=== PATIENT | female | born 1975 | race Caucasian/White ===

== ENCOUNTER → 2024-09-26 | Outpatient (CLI) | payer SELFPAY ==
--- NOTE | 2024-09-26 14:11 | US_ITS ---
EXAM: US Pelvis Transabdominal and Transvaginal, Complete CLINICAL INDICATION: VAGINAL BLEEDING ABNORMAL TECHNIQUE: Real-time complete transabdominal and transvaginal pelvic ultrasound with image documentation. Transvaginal imaging was used for better evaluation of the endometrium and adnexa. COMPARISON: No relevant prior studies available. FINDINGS: UTERUS/CERVIX: Multiple uterine fibroids, largest measuring up to 3.8 cm. Endometrium 1.2 mm thick. The uterus measures 3.8 x 10.0 x 5.9 cm. RIGHT OVARY: Unremarkable. Normal blood flow. The right ovary measures 6.4 x 4.8 x 4.7 cm. LEFT OVARY: Unremarkable. Normal blood flow. The left ovary measures 3.1 x 2.2 x 1.5 cm. FREE FLUID: No free fluid. BLADDER: Unremarkable as visualized. Wall is normal thickness for degree of distention. OTHER FINDINGS: 3.8 cm right renal cyst. US/Pelvic (Non ) IMPRESSION: Uterine fibroids. Reading Location: [id number]
--- NOTE | 2024-09-26 15:10 | BI_ITS ---
EXAM: SCRN MAMM (CAD)W/SCHUYLER BILAT DATE: 09/26/2024 CLINICAL HISTORY: F, Age 49 y/o , ENCOUNTER FOR SCREENING MATOS MALIGNANT TECHNIQUE: SCRN MAMM (CAD)W/SCHUYLER BILAT COMPARISON: NONE AVAILABLE FINDINGS: TISSUE DENSITY: The breasts are heterogeneously dense, which may obscure small masses. Bilateral Breast Mammographic Findings: No suspicious masses, calcifications or other abnormalities are identified. BI/SCRN MAMM (CAD)W/SCHUYLER BILAT IMPRESSION: No mammographic evidence of malignancy in either breast OVERALL FINAL ASSESSMENT BI-RADS 1: NEGATIVE. RECOMMENDATION: Routine annual follow-up in 1 Year A letter with findings and recommendations will be mailed to the patient. Reading Location: [id number]
== END | disposition home or self-care (01) ==
PROVIDERS: PCP Internal Medicine; Referring Provider Internal Medicine; Visit Provider Internal Medicine
DX: Z12.31 Encounter for screening mammogram for malignant neoplasm of breast (principal); N93.9 Abnormal uterine and vaginal bleeding, unspecified
CPT/HCPCS: 76856; 77063; 77067

== ENCOUNTER → 2024-10-18 | Outpatient (CLI) | payer SELFPAY ==
--- NOTE | 2024-10-18 06:56 | CT_ITS ---
PROCEDURE: LIMITED CHEST CT CARDIAC ONLY 10/18/2024 REASON FOR EXAM: FAMILY HISTORY OF CARDIOVASCULAR DISEASE TECHNIQUE: LIMITED CHEST CT CARDIAC ONLY CONTRAST: None One or more dose reduction techniques were used (e.g., Automated exposure control, adjustment of the mA and/or kV according to patient size, use of iterative reconstruction technique). RADIATION DOSE SUMMARY: CTDlvol: 12.19 mGy DLP: 219.42 mGycm COMPARISON: None FINDINGS: Atherosclerotic calcification of the aortic arch. No significant coronary artery calcification is seen. The lungs are clear. CT/Limited Chest CT Cardiac Only IMPRESSION: No significant coronary artery calcification seen. Reading Location: [place] [id number]
--- NOTE | 2024-10-18 06:56 | CT_ITS ---
PROCEDURE: CARDIAC CALCIUM SCORING 10/18/2024 REASON FOR EXAM: FAMILY HISTORY OF CARDIOVASCULAR DISEASE TECHNIQUE: CT examination through the coronary arteries without intravenous contrast. Screening examination for the purpose of establishing a computer generated calcium score. Coronal and Sagittal reconstruction series were provided. One or more dose reduction techniques were used (e.g., Automated exposure control, adjustment of the mA and/or kV according to patient size, use of iterative reconstruction technique). RADIATION DOSE SUMMARY: CTDlvol: 12.19 mGy DLP: 219 point 12 mGycm FINDINGS: No significant coronary artery calcification is seen. Atherosclerotic calcification of the aortic arch. The lungs are clear. CT/Cardiac Calcium Scoring IMPRESSION: No evidence of coronary artery calcification. Reading Location: [place] [id number]
--- OUTSIDE RECORDS SUMMARY | 2024-10-18 06:58 | XMS RPT_ITS | CCD ---
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 Name Role Phone Unavailable Primary Care Provider Unavailabl e Pooja Mohan DO Primary Care Provider Hardeep MANCINI, Maxine Unavailable Scott ZHAGN, Nava Ellis Unavailable POOJA MOHAN Primary Care Unavailab MAXINE Hernandez Referring Unavailable Irina Hill MA Unavailable Unavailable Adelaide ZHANG, Cassia Unavailable [phone] MAXINE TATUM Attending Unavailable MAXINE TATUM Referring Unavailable POOJA MOHAN Primary Care Unavailab MAXINE Hernandez Attending Unavailable MAXINE TATUM Referring Unavailable POOJA MOHAN Primary Care Unavailab MAXINE Hernandez Admitting Unavailable MAXINE TATUM Attending Unavailable MAXINE TATUM Referring Unavailable POOJA MOHAN Primary Care Unavailab MAXINE Hernandez Attending Unavailable CASSIA BRYSON Referring Unavailable POOJA MOHAN Primary Care Unavailab DEANNA Ellis Attending Unava ilable POOJA MOHAN Primary Care Unavailab le Dr. Pooja Mohan DO Primary Care Provider Dr. Pooja Mohan DO Attending Provider Dr. Pooja Mohan DO Referring Provider [phone] Pooja Mohan Primary Care Unavailable Pooja Mohan Attending Unavailable Pooja Mohan Referring Unavailable Pooja Mohan Attending Unavailable Pooja Mohan Referring Unavailable Pooja Mohan Primary Care Unavailable Pooja Mohan Attending Unavailable Pooja Mohan Referring Unavailable TyPooja pérez Primary Care Unavailable Medications Current Medications Medication Drug Class(es) Dates Sig (Normalized) Sig (Original) Calcium Carbonate (11 sources) calcium carbonat e (CALCIUM 500 ORAL) Take by mouth. Active ergocalciferol, vitamin D2, (VITAMIN D2 ORAL) (10 sources) take 1 tablet by mouth once daily ergocalciferol, vitamin D2, (VITAMIN D2 ORAL) Take 1 tablet by mouth once daily. Active fish oil/borage/flax/om3,6 ,9 1 (OMEGA 3-6-9 ORAL) (11 sources) fish oil/borage/flax/om 3,6,9 1 (OMEGA 3-6-9 ORAL) Take by mouth. Active iv contrast (will be provided with radiology test) (1 source) Start: 03-05-2024 End: 03-05-2024 inject 1 dose intravenously once, then inject 1 dose intravenously once iv contrast (will be provided with radiology test) Indications: Malignant melanoma of left lower extremity including hip (HCC) Inject 1 Each intravenously one time only for [address] COMPLETE LEG (HIP TO TOES) W IVCON LEFT - No IV access, insert saline lock prior to the sedation, infusion, injection for imaging exam. Discontinue saline lock post exam. If Pt. has a central line or IVAD, may access for administration according to line specific nursing protocol. Once exam is complete flush line and de-access according to line specific nursing protocol in the CT contrast administration guidelines link. 1 Each 03/05/2024 03/05/2024 Active multivit with calcium,iron,min (WOMEN'S DAILY MULTIVITAMIN ORAL) (11 sources) multivit with calcium,iron,min (WOMEN'S DAILY MULTIVITAMIN ORAL) Take by mouth. Active sulfamethoxazole 800 mg / trimethoprim 160 mg oral tablet (7 sources) Dihydrofolate Reductase Inhibitor Antibacterial, Sulfonamide Antimicrobial Start: 02-24-2024 take 1 tablet by mouth twice daily sulfamethoxazole-t rimethoprim (BACTRIM DS) 800-160 mg per tablet Indications: Malignant melanoma of left lower extremity including hip (HCC) Take 1 tablet by mouth two times a day. 20 tablet 02/24/2024 Active traMADol hydrochloride 50 mg oral tablet (1 source) Opioid Agonist Start: 02-21-2024 End: 02-26-2024 take 1 tablet by mouth every six hours as needed for pain traMADol (ULTRAM) 50 mg tablet Indications: Malignant melanoma of left lower extremity including hip (HCC) Take 1 tablet by mouth every 6 hours as needed for pain for up to 5 days. 12 tablet 02/21/2024 02/26/2024 Active Problems Active Problems Problem Classification Problem Date Documented Date Episodic/Chronic Melanomas of skin (20 sources) Malignant melanoma of lower limb ; Translations: [Malignant melanoma of left lower limb, including hip] Onset: 01-19-2024 01-16-2024 Chronic Melanomas of skin (2 sources) H/O Malignant melanoma; Translations: [Personal history of malignant melanoma of skin] 07-03-2024 Episodic Other diseases of veins and lymphatics (1 source) Lymphedema, not elsewhere classified; Translations: [Lymphedema] Onset: 01-19-2024 Chronic Other screening for suspected conditions (not mental disorders or infectious disease) (2 sources) Encounter for other screening for malignant neoplasm of breast; Translations: [Encounter for screening mammogram for malignant neoplasm of breast] Onset: 09-26-2024 Episodic Residual codes; unclassified (1 source) Family history of ischemic heart disease and other diseases of the circulatory system; Translations: [Family history of ischemic heart disease and other diseases of the circulatory system] Onset: 10-03-2024 Episodic Unclassified (1 source) Number of Children 07-03-2024 Comment on above: 3. Unclassified (1 source) establishment - Patient is here to get established as she has not seen a pcp since having her children years ago. She reports that she is feeling well at this time. She does not have any chronic medical conditions and does not take any prescription medications.Patient was diagnosed with melanoma on her left leg in January 2024. She has been following with [facility] and a [facility] oncologist. She has follow up scans planned with them every 3 months. Her scans and surgeries have show no recurrence so far.Patient reports a family history of heart disease in her father. 07-03-2024 Unclassified (1 source) Post Op Onset: 02-27-2024 Past or Other Problems Problem Classification Problem Date Documented Date Episodic/Chronic Complications of surgical procedures or medical care (3 sources) Postoperative seroma; Translations: [Postprocedural seroma of skin and subcutaneous tissue following a dermatologic procedure] Onset: 03-20-2024 02-27-2024 Episodic NEGATED: Highlighted row has been ruled out!Unclassified (2 sources) No Problem Information Available Results Test Name Value Interpretation Reference Range Facility Breast imaging reportOrdered By: Loyda Joshi on 09-26-2024 Study report [facility] Imaging Services [address] [place] [place] [id number] SCRN MAMM (CAD)W/SCHUYLER BILAT MR#: [id number] Acct: [id number] Name: BHAVANA DELGADILLO Rep #: [id number] : 1975 F 49 From: Eladio Grace MD PCP: Dr. Pooja Mohan DO Status: RE G CLI Study:SCRN MAMM (CAD)W/SCHUYLER BILAT Date of Exa m: 09/26/24 Exam# [id number] Ordering Dr: Juan Jose Mohan DO EXAM: SCRN MAMM (CAD)W/SCHUYLER BILAT DATE: 09/26/2024 CLINICAL HISTORY: F, Age 49 y/o , ENCOUNTER FOR SCREENING MATOS MALIGNANT TECHNIQUE: SCRN MAMM (CAD)W/SCHUYLER BILAT COMPARISON: NONE AVAILABLE FINDINGS: TISSUE DENSITY: The breasts are heterogeneously dense, which may obscure small masses. Bilateral Breast Mammographic Findings: No suspicious masses, calcifications or other abnormalities are identified. BI/SCRN MAMM (CAD)W/SCHUYLER BILAT IMPRESSION: No mammographic evidence of malignancy in either breast OVERALL FINAL ASSESSMENT BI-RADS 1: NEGATIVE. RECOMMENDATION: Routine annual follow-up in 1 Year A letter with findings and recommendations will be mailed to the patient. Reading Location: [id number] CC: Dr. Pooja Mohan DO ~ Sports Equipment Racker: Signed [facility] Pelvic (Non )on 09-05 Pelvic (Non ) [facility] Imaging Services [address] [place] [address] Pelvic (Non ) MR#: [id number] Acct: [id number] Name: BHAVANA DELGADILLO Rep #: [id number] : 1975 F 49 From: Shane Rahman MD PCP: Dr. Pooja Mohan, DO Status: REG CLI Study: Pelvic (Non ) Date of Exam: 09/26/24 Exam# [id number] Ordering Dr: Pooja Mohan DO EXAM: US Pelvis Transabdominal and Transvaginal, Complete CLINICAL INDICATION: VAGINAL BLEEDING ABNORMAL TECHNIQUE: Real-time complete transabdominal and transvaginal pelvic ultrasound with image documentation. Transvaginal imaging was used for better evaluation of the endometrium and adnexa. COMPARISON: No relevant prior studies available. FINDINGS: UTERUS/CERVIX: Multiple uterine fibroids, largest measuring up to 3.8 cm. Endometrium 1.2 mm thick. The uterus measures 3.8 x 10.0 x 5.9 cm. RIGHT OVARY: Unremarkable. Normal blood flow. The right ovary measures 6.4 x 4.8 x 4.7 cm. LEFT OVARY: Unremarkable. Normal blood flow. The left ovary measures 3.1 x 2.2 x 1.5 cm. FREE FLUID: No free fluid. BLADDER: Unremarkable as visualized. Wall is normal thickness for degree of distention. OTHER FINDINGS: 3.8 cm right renal cyst. US/Pelvic (Non ) IMPRESSION: Uterine fibroids. Reading Location: [facility] CC: Dr. Pooja Mohan, Sports Equipment Racker: Signed Normal [facility] SCRN MAMM (CAD)W/SCHUYLER BILATo n 09-26-2024 SCRN MAMM (CAD)W/SCHUYLER BILAT [facility] Imaging Services [address] [place] [address] SCRN MAMM (CAD)W/SCHUYLER BILAT MR#: [id number] Acct: [id number] Name: BHAVANA DELGADILLO Rep #: [id number] : 1975 F 49 From: Loyda Horn i, MD PCP: Dr. Pooja Mohan, DO Status: REG CLI Study: SCRN MAMM (CAD)W/SCHUYLER BILAT Date of Exam: 09/05 05/29 Exam# [id number] Ordering Dr: Pooja Mohan DO EXAM: SCRN MAMM (CAD)W/SCHUYLER BILAT DATE: 09/26/2024 CLINICAL HISTORY: F, Age 49 y/o , ENCOUNTER FOR SCREENING MATOS MALIGNANT TECHNIQUE: SCRN MAMM (CAD)W/SCHUYLER BILAT COMPARISON: NONE AVAILABLE FINDINGS: TISSUE DENSITY: The breasts are heterogeneously dense, which may obscure small masses. Bilateral Breast Mammographic Findings: No suspicious masses, calcifications or other abnormalities are identified. BI/SCRN MAMM (CAD)W/SCHUYLER BILAT IMPRESSION: No mammographic evidence of malignancy in either breast OVERALL FINAL ASSESSMENT BI-RADS 1: NEGATIVE. RECOMMENDATION: Routine annual follow-up in 1 Year A letter with findings and recommendations will be mailed to the patient. Reading Location: [id number] CC: Dr. Pooja Mohan DO Sports Equipment Racker: [facility] (AGGENS 3[facility] -------- LEONABHAVANA MANCILLA ([id number]) 1975 F Date Time Provider Department 09/25/24 10:00 AM MAXINE TATUM AGGENS3 During your visit today, we recorded the following information about you: Pulse Blood pressure Weight Height 78/minute 124/78 86.2 kg 1.626 m Maxine Tatum MD 09/25/2024 10:44 AM Signed Maxine Tatum MD Surgical Oncology [address] [place] [address], [address] [place] [id number] Name: Bhavana Delgadillo Age: [age] year old Sex: Bhavana Mancilla Leona : 1975 Referring Provider: Maxine Tatum MD Subjective CHIEF COMPLAINT: Melanoma surveillance ONCOLOGIC HISTORY: 01/04/2024: Melanoma of Left lower leg 02/21/2024: WLE and SLNB; [id number] Anatomic Location: Left lower leg Breslow Depth: 1.0mm Ulceration: No Mitosis: 2/mm2 Buchanan Lymph Node Biopsy: Yes Number of positive SLN: 0/1 HISTORY OF PRESENT ILLNESS: Ms. Delgadillo is a 49 year old female who presents for follow up for history of melanoma. Reports some intermittent swelling in left leg worse on hot, humid days or when traveling. Adjuvant Immunotherapy: No Number of Adjuvant Immunotherapy Cycles: N/A Recurrence: No Location of Recurrence: N/A I personally reviewed Tobacco Allergies Meds Problems Med Hx Surg Hx Fam Hx Objective PHYSICAL EXAM: BP 124/78 Pulse 78 Ht 5' 4 (1.63m) Wt 190 lb (86.2kg) SpO2 98% BMI 32.60 kg/(m2). Physical Exam Constitutional: General: She is not in acute distress. Appearance: Normal appearance. HENT: Head: Normocephalic and atraumatic. Mouth/Throat: Mouth: Mucous membranes are moist. Eyes: Extraocular Movements: Extraocular movements intact. Cardiovascular: Rate and Rhythm: Normal rate. Pulmonary: Effort: Pulmonary effort is normal. No respiratory distress. Abdominal: General: Abdomen is flat. Palpations: Abdomen is soft. Musculoskeletal: General: Normal range of motion. Cervical back: Normal range of motion. Lymphadenopathy: Lower Body: No left inguinal adenopathy. Skin: General: Skin is warm and dry. Comments: Incision without subcutaneous nodules or pigmented lesions Neurological: General: No focal deficit present. Mental Status: She is alert and oriented to person, place, and time. Mental status is at baseline. Psychiatric: Mood and Affect: Mood normal. Behavior: Behavior normal. Thought Content: Thought content normal. Judgment: Judgment normal. Assessment/Plan Ms. Delgadillo is a 49 year old female with history of melanoma of left lower leg, s/p WLE and SLNB, without evidence of recurrence -Follow up in 6 months with [facility] -Refer to Lymphedema clinic -Continue regular Dermatology screenings -Skin protection with sunscreen and physical barriers discussed. Cancer Staging Malignant melanoma of left lower extremity including hip (HCC) Staging form: Melanoma of the Skin, AJCC 8th Edition - Pathologic stage from 02/21/2024: Stage IA (pT1b, pN0, cM0) - Signed by Maxine Tatum MD on 03/12/2024 Maxine Tatum MD 09/25/2024 1043 Referring Provider: MAXINE TTAUM [[id number]] Allergies As of Date: 09/25/2024 (No Known Allergies) Date Reviewed: 09/25/2024 Reviewed by: Maxine Tatum MD - Fully Assessed Reason for Visit: New Patient [172] Established Patient [175] Cmt: 6 month follow up Melanoma Primary Visit Diagnosis:Malignant melanoma of left lower extremity including hip (HCC) [C43.72] Order(s):CONSULT TO LYMPHEDEMA THERAPY [[id number]] Order #: [id number]: 1 FUTURE Prescriptions as of 09/25/2024 - sulfamethoxazole-trimeth oprim (BACTRIM DS) 800-160 mg per tablet Take 1 tablet by mouth two times a day. - ergocalciferol, vitamin D2, (VITAMIN D2 ORAL) Take 1 tablet by mouth once daily. - multivit with calcium,iron,min (WOMEN'S DAILY MULTIVITAMIN ORAL) Take by mouth. - calcium carbonate (CALCIUM 500 ORAL) Take by mouth. - fish oil/borage/flax/om3,6,9 1 (OMEGA 3-6-9 ORAL) Take by mouth. Problem List As Of Date 09/25/2024 Noted Resolved Malignant melanoma of left lower extremity incl*01/19/2024 Level of Service: OFFICE/OUTPATIENT ESTABLISHED MOD [facility] 30 MIN [59939] Additional E/M codes: VISIT CPLX INHERENT EANDM ASSOC WITH MED * Encounter Status:Closed by MAXINE TATUM on 09/25/24 [facility] 05-15-2024 NIRALI Telephone (OBGYWM) -------- BHAVANA DELGADILLO ([id number]) 1975 F Date Time Provider Department 05/15/24 MAXINE TATUM During your visit today, we recorded the following information about you: Arlene Martin 05/15/2024 2:03 PM Signed Patient would like disk of CT scan on 03/09/24 of her left leg. Andrea Armendariz, [facility] 05/16/2024 2:31 PM Signed CD READY FOR MARKER DELIVERY AT [facility] PT IS AWARE Allergies As of Date: 05/15/2024 (No Known Allergies) Date Reviewed: 03/20/2024 Reviewed by: Maxine Tatum MD - Fully Assessed Prescriptions as of 05/17/2024 - sulfamethoxazole-trimeth oprim (BACTRIM DS) 800-160 mg per tablet Take 1 tablet by mouth two times a day. - ergocalciferol, vitamin D2, (VITAMIN D2 ORAL) Take 1 tablet by mouth once daily. - multivit with calcium,iron,min (WOMEN'S DAILY MULTIVITAMIN ORAL) Take by mouth. - calcium carbonate (CALCIUM 500 ORAL) Take by mouth. - fish oil/borage/flax/om3,6,9 1 (OMEGA 3-6-9 ORAL) Take by mouth. Problem List As Of Date 05/15/2024 Noted Resolved Malignant melanoma of left lower extremity incl*01/19/2024 Encounter Status:Closed by ANDREA GUZMÁN on 05/17/24 [facility]OVon 03-20-2024 CNOV Office Visit (AGGENS 3) -------- BHAVANA DELGADILLO ([id number]) 1975 F Date Time Provider Department 03/20/24 11:30 AM MAXINE TATUM3 During your visit today, we recorded the following information about you: Pulse Blood pressure Weight Height 84/minute 130/80 88.9 kg 1.626 m Maxine Tatum MD 03/20/2024 12:12 PM Signed Maxine Tatum MD Surgical Oncology [address] [facility], [address] [place] [address] Name: Bhavana Delgadillo Age: [age] year old Sex: Bhavana Delgadillo : 1975 Referring Provider: Maxine Tatum MD Subjective CHIEF COMPLAINT: Melanoma ONCOLOGIC HISTORY: 01/04/2024: Melanoma of Left lower leg 02/21/2024: WLE of left lower leg melanoma and SLNB; [id number] HISTORY OF PRESENT ILLNESS: Ms. Delgadillo is a 48 year old female who presents for postoperative follow up for WLE and SLNB of melanoma of left lower leg. Has had some inguinal incisional wound healing difficulties. Has been having continuous serous drainage from left inguinal incision. Was seen by Dr. De Souza due to concerns for wound infection. Was treated with a week's worth of oral antibiotics. Continues to have drainage but states that it is clear. Reports continuous drainage despite dressings. Patient was supposed to have follow up last week but cancelled due to having the flu. When I spoke to her on the phone at that time, she mentioned that the area had sealed up and was no longer draining and would like to avoid a drain if possible. Today she states that the area is no longer draining. She continues to feel a small lump under the incision consistent with a seroma but otherwise feels well. Date of Surgery:02/21/2024 Anatomic Location: Left lower leg Breslow Depth: 1.0mm Ulceration: No Mitosis: 2/mm2 Buchanan Lymph Node Biopsy: Yes Number of positive SLN: 0/1 PAST MEDICAL HISTORY Diagnosis Date Malignant melanoma (HCC) PAST SURGICAL HISTORY Procedure Laterality Date SECTION HX x3 PAST SURGICAL HISTORY OF 2023 skin lesion biopsy PAST SURGICAL HISTORY OF Left WLE Melanoma Current Outpatient Medications on File Prior to Visit Medication Sig sulfamethoxazole-trimeth oprim (BACTRIM DS) 800-160 mg per tablet Take 1 tablet by mouth two times a day. ergocalciferol, vitamin D2, (VITAMIN D2 ORAL) Take 1 tablet by mouth once daily. multivit with calcium,iron,min (WOMEN'S DAILY MULTIVITAMIN ORAL) Take by mouth. calcium carbonate (CALCIUM 500 ORAL) Take by mouth. fish oil/borage/flax/om3,6,9 1 (OMEGA 3-6-9 ORAL) Take by mouth. No current facility-administered medications on file prior to visit. ALLERGIES No Known Allergies FAMILY HISTORY Problem Relation Age of Onset Breast Cancer Maternal Aunt Breast Cancer Maternal Aunt Breast Cancer Maternal Aunt Social History Tobacco Use Smoking status: Never Smokeless tobacco: Never Substance Use Topics Alcohol use: Yes Comment: less than 1 per week Drug use: Never I personally reviewed Tobacco Allergies Meds Problems Med Hx Surg Hx Fam Hx Objective PHYSICAL EXAM: BP 130/80 Pulse 84 Ht 5' 4 (1.63m) Wt 196 lb (88.9kg) SpO2 97% BMI 33.63 kg/(m2). Physical Exam Constitutional: General: She is not in acute distress. Appearance: Normal appearance. HENT: Head: Normocephalic and atraumatic. Eyes: Extraocular Movements: Extraocular movements intact. Conjunctiva/sclera: Conjunctivae normal. Cardiovascular: Rate and Rhythm: Normal rate and regular rhythm. Pulses: Normal pulses. Heart sounds: Normal heart sounds. Pulmonary: Effort: Pulmonary effort is normal. No respiratory distress. Breath sounds: Normal breath sounds. No stridor. Abdominal: General: There is no distension. Palpations: Abdomen is soft. Tenderness: There is no abdominal tenderness. Musculoskeletal: General: No deformity. Normal range of motion. Cervical back: Normal range of motion. Lymphadenopathy: Cervical: No cervical adenopathy. Skin: General: Skin is warm and dry. Findings: No erythema or rash. Comments: Groin and lower leg incisions well healing; left groin with a seroma deep to the incision. Neurological: General: No focal deficit present. Mental Status: She is alert and oriented to person, place, and time. Mental status is at baseline. Psychiatric: Mood and Affect: Mood normal. Behavior: Behavior normal. Thought Content: Thought content normal. Judgment: Judgment normal. DATA: Images: CT Date of Test: 03/09/2024 IMPRESSION: 2.9 cm left inguinal collection at site of presumed lymph node excision, likely a small seroma. Additional small collection in the medial left calf subcutaneous fat also likely reflects a small postoperative seroma. Images were personally reviewed and interpreted. Assessmen (more content not included)... [facility] 03-16-2024 CNPN Telephone (AGGENS3) -------- BHAVANA DELGADILLO ([id number]) 1975 F Date Time Provider Department 03/16/24 MAXINE TATUM AGGENS3 During your visit today, we recorded the following information about you: Eliza Neff LPN 03/16/2024 2:02 PM Signed OV note, Op report, Pathology report faxed to referring office, [facility]. 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 - ergocalciferol, vitamin D2, (VITAMIN D2 ORAL) Take 1 tablet by mouth once daily. - multivit with calcium,iron,min (WOMEN'S DAILY MULTIVITAMIN ORAL) Take by mouth. - calcium carbonate (CALCIUM 500 ORAL) Take by mouth. - fish oil/borage/flax/om3,6,9 1 (OMEGA 3-6-9 ORAL) Take by mouth. Problem List As Of Date 03/16/2024 Noted Resolved Malignant melanoma of left lower extremity incl*01/19/2024 Encounter Status:Closed by ELIZA NEFF on 03/16/[address] [facility] [address] COMPLETE LEG W IVCON LTon 03-09-2024 CT COMPLETE LEG W IVCON LT * * *Final Report* * * DATE OF EXAM: Mar 09 2024 10:52AM [facility] 2006 - CT COMPLETE LEG W IVCON LT / PROCEDURE REASON: Malignant melanoma of left lower extremity including hip (HCC) * * * * Physician Interpretation * * * * EXAMINATION: CT COMPLETE LEG W IVCON LT CLINICAL HISTORY: Left inguinal sentinel lymph node biopsy, evaluate for seroma. TECHNIQUE: Axial CT of the left lower extremity was obtained after intravenous contrast. Coronal and sagittal reformats were reviewed. Bone and soft tissue reconstruction algorithms were utilized. Contrast: IV administration of 100 ml of Omnipaque 350 CT Radiation dose: Integrated Dose-length product (DLP) for this visit = 990 mGy*cm. CT Dose Reduction Employed: Automated exposure control(AEC) and iterative recon COMPARISON: None RESULT: Postsurgical changes in the left inguinal region including multiple surgical clips surrounding a 2.9 x 2.0 cm collection, presumably at site of lymph node excision. Additional 2.2 x 1.4 cm collection in the medial aspect of the left calf subcutaneous fat with adjacent stranding, likely site of melanoma excision. The soft tissues are otherwise unremarkable. There is no enhancing mass. Mild medial compartment osteoarthritis in the knee. Small Aragon's cyst. The hip and ankle joints are maintained. Benign-appearing 1.3 cm fibro-osseous lesion in the intertrochanteric left femur. The imaged pelvis is unremarkable. No lymphadenopathy. Manager Ship (topogram) images: No significant additional findings. IMPRESSION: 2.9 cm left inguinal collection at site of presumed lymph node excision, likely a small seroma. Additional small collection in the medial left calf subcutaneous fat also likely reflects a small postoperative seroma. Sports Equipment Racker: ANGELINE Transcribe Date/Time: Mar 09 2024 1:14P Dictated by : CLEVE PAGAN MD This examination was interpreted and the report reviewed and electronically signed by: SHELLY MOSHER MD on Mar 09 2024 3:06PM EST [id number] Normal [facility] CT Lower extremity - left W contrast Rolando 03-09-2024 IMPRESSION: 2.9 cm left inguinal collection at site of presumed lymph node excision, likely a small seroma. Additional small collection in the medial left calf subcutaneous fat also likely reflects a small postoperative seroma. Sports Equipment Racker: ANGELINE Transcribe Date/Time: Mar 09 2024 1:14P Dictated by : CLEVE PAGAN MD This examination was interpreted and the report reviewed and electronically signed by: SHELLY MOSHER MD on Mar 09 2024 3:06PM [facility] DIVISION OF RADIOLOGY * * *Final Report* * * DATE OF EXAM: Mar 09 2024 10:52AM [facility] 2005 - CT COMPLETE LEG W IVCON LT / PROCEDURE REASON: Malignant melanoma of left lower extremity including hip (HCC) * * * * Physician Interpretation * * * * EXAMINATION: CT COMPLETE LEG W IVCON LT CLINICAL HISTORY: Left inguinal sentinel lymph node biopsy, evaluate for seroma. TECHNIQUE: Axial CT of the left lower extremity was obtained after intravenous contrast. Coronal and sagittal reformats were reviewed. Bone and soft tissue reconstruction algorithms were utilized. Contrast: IV administration of 100 ml of Omnipaque 350 CT Radiation dose: Integrated Dose-length product (DLP) for this visit = 990 mGy*cm. CT Dose Reduction Employed: Automated exposure control(AEC) and iterative recon COMPARISON: None RESULT: Postsurgical changes in the left inguinal region including multiple surgical clips surrounding a 2.9 x 2.0 cm collection, presumably at site of lymph node excision. Additional 2.2 x 1.4 cm collection in the medial aspect of the left calf subcutaneous fat with adjacent stranding, likely site of melanoma excision. The soft tissues are otherwise unremarkable. There is no enhancing mass. Mild medial compartment osteoarthritis in the knee. Small Aragon's cyst. The hip and ankle joints are maintained. Benign-appearing 1.3 cm fibro-osseous lesion in the intertrochanteric left femur. The imaged pelvis is unremarkable. No lymphadenopathy. Manager Ship (topogram) images: No significant additional findings. DIVISION OF RADIOLOGY Provider, [facility] - 03/09/2024 * * *Final Report* * * DATE OF EXAM: Mar 09 2024 10:52AM [facility] [address] - [address] COMPLETE LEG W IVCON LT / PROCEDURE REASON: Malignant melanoma of left lower extremity including hip (HCC) * * * * Physician Interpretation * * * * EXAMINATION: CT COMPLETE LEG W IVCON LT CLINICAL HISTORY: Left inguinal sentinel lymph node biopsy, evaluate for seroma. TECHNIQUE: Axial CT of the left lower extremity was obtained after intravenous contrast. Coronal and sagittal reformats were reviewed. Bone and soft tissue reconstruction algorithms were utilized. Contrast: IV administration of 100 ml of Omnipaque 350 CT Radiation dose: Integrated Dose-length product (DLP) for this visit = 990 mGy*cm. CT Dose Reduction Employed: Automated exposure control(AEC) and iterative recon COMPARISON: None RESULT: Postsurgical changes in the left inguinal region including multiple surgical clips surrounding a 2.9 x 2.0 cm collection, presumably at site of lymph node excision. Additional 2.2 x 1.4 cm collection in the medial aspect of the left calf subcutaneous fat with adjacent stranding, likely site of melanoma excision. The soft tissues are otherwise unremarkable. There is no enhancing mass. Mild medial compartment osteoarthritis in the knee. Small Aragon's cyst. The hip and ankle joints are maintained. Benign-appearing 1.3 cm fibro-osseous lesion in the intertrochanteric left femur. The imaged pelvis is unremarkable. No lymphadenopathy. Manager Ship (topogram) images: No significant additional findings. IMPRESSION IMPRESSION: 2.9 cm left inguinal collection at site of presumed lymph node excision, likely a small seroma. Additional small collection in the medial left calf subcutaneous fat also likely reflects a small postoperative seroma. Sports Equipment Racker: PSCB Transcribe Date/Time: Mar 09 2024 1:14P Dictated by : CLEVE PAGAN MD This examination was interpreted and the report reviewed and electronically signed by: SHELLY MOSHER MD on Mar 09 2024 3:06PM [facility] Radiology Study observation (narrative) [facility] CT Lower extremity - left W contrast IVOrdered By: [facility] Provider on 03-09-2024 [facility] CNOVon 02-27-2024 CNOV Office Visit (AGG[place] 3) -------- BHAVANA DELGADILLO ([id number]) 1975 F Date Time Provider Department 02/27/24 1:15 PM DEANNA DE SOUZA3 During your visit today, we recorded the following information about you: Deanna De Souza MD 02/27/2024 2:48 PM Signed [facility] SURGERY PROGRESS NOTE Subjective INTERVAL HISTORY OF PRESENT ILLNESS: Came in today for a wound check of her left groin Started noticing erythema that went about detention down her thigh followed by some fluid drainage through the medial side of her incision that sound by her description to be infected hematoma. After a day of that draining, it changed to serous fluid. Was started on bactrim on Tuesday and erythema almost completely resolved today. Removed bandage and does have serous fluid drainage on palpation, but no current concerns for ongoing infection. Was having fever/chills on Tuesday, but this has resolved over the weekend. Leg incision still with tape dressing over top, but no signs of infection or significant drainage - will leave in place for now Objective PHYSICAL EXAM: There were no vitals taken for this visit. Physical Exam Performed GENERAL: Alert, no distress, cooperative LUNGS: Negative ABDOMEN: Soft, nontender WOUND: Left groin incision with serous drainage, well approximated edges, no erythema or hematoma present; left leg incision healing well; dressing not taken fully down, but no erythema, swelling, or drainage from this site Assessment/Plan 48 year old female s/p WLE LLE melanoma and L inguinal SLNB presenting today for wound check with L groin seroma. --Complete 10 day course of bactrim as prescribed --Dry dressing to groin - change daily and as needed --Keep LLE dressing on until 03/06 and then can take off --Keep follow-up with Dr. Tatum as scheduled in March Danielle De Souza MD B Surgeon Allergies As of Date: 02/27/2024 (No Known Allergies) Date Reviewed: 02/27/2024 Reviewed by: Eliza Neff LPN - Fully Assessed Reason for Visit: Post Op [174] Cmt: Incision check Primary Visit Diagnosis:Malignant melanoma of left lower extremity including hip (HCC) [C43.72] Other Visit Diagnosis:Seroma of skin or subcutaneous tissue after dermatologic procedure [L76.33] Prescriptions as of 02/27/2024 - sulfamethoxazole-trimeth oprim (BACTRIM DS) 800-160 mg per tablet Take 1 tablet by mouth two times a day. - ergocalciferol, vitamin D2, (VITAMIN D2 ORAL) Take 1 tablet by mouth once daily. - multivit with calcium,iron,min (WOMEN'S DAILY MULTIVITAMIN ORAL) Take by mouth. - calcium carbonate (CALCIUM 500 ORAL) Take by mouth. - fish oil/borage/flax/om3,6,9 1 (OMEGA 3-6-9 ORAL) Take by mouth. Problem List As Of Date 02/27/2024 Noted Resolved Malignant melanoma of left lower extremity incl*01/19/2024 Level of Service: POSTOP FOLLOW UP VISIT RELATED TO ORIGINAL PX [[id number]] Encounter Status:Closed by DEANNA DE SOUZA on 02/27/24 Normal [facility] ANES POSTPROC EVALon 024 ANES POSTPROC EVAL HNO ID: [id number] Author: BRIJESH WILLSON MD Service: Anesthesiology Author Type: Physician Type: Anesthesia Postprocedure Evaluation Filed: 02/23/2024 10:35 Note Text: POST ANESTHESIA EVALUATION NOTE : 1975 Procedure Summary Date: 02/21/24 Room / Location: [place] [address] [place] [address] Anesthesia Start: 1046 Anesthesia Stop: 1309 Procedures: INTRAOPERATIVE ID OF SENTINEL LYMPH NODE(S) INCL'D INJECTION OF NON-RAD DYE WHEN PERFORMED WIDE LOCAL EXCISION LEFT LEG MELENOMA (Left) Diagnosis: Malignant melanoma of left lower extremity including hip (HCC) (Malignant melanoma of left lower extremity including hip (HCC) [C43.72]) Surgeons: Maxine Tatum MD Responsible Provider: Brijesh Willson MD Anesthesia Type: general ASA Status: 2 Anesthesia Type: general Last Vitals Vitals Value Taken Time BP 142/84 02/21/24 1400 Temp 36.5 ?C (97.7 ?F) 02/21/24 1400 HR SpO2 69 02/21/24 1415 Resp 17 02/21/24 1415 SpO2 100 % 02/21/24 1415 Post Anesthesia Patient Status Patient Evaluation: PACU. PACU/ICU Patient Condition: stable. Neurological Status: aware and responsive. Pulmonary Status: breathing comfortably on room air Airway Control: returned to baseline unsupported. Cardiovascular Status: stable. Pain Management: clinically adequate Postoperative Hydration: acceptable. Intraoperative Events: no significant anesthesia events Post Operative Nausea/Vomiting Status: no significant post operative nausea or vomiting Recommendation: continue current plan of care. Anesthesia Observations No Documentation SIGNATURE: Brijesh Willson MD PATIENT NAME: Bhavana Delgadillo DATE: February 23, 2024 TIME: 10:35 AM CSN: [id number] [facility] ALLIED HEALTHon 02-21-2024 ALLIED HEALTH HNO ID: [id number] Author: JIMI LUIS Chaplain Service: ? Author Type: Batch Analyst Type: Allied Health Filed: 02/21/2024 10:14 Note Text: SPIRITUAL CARE ASSESSMENT SERVICE DATE: 02/21/2024 SERVICE TIME: 9:35 AM Visit with: Patient and Family / Friend / Significant Other Length of visit (minutes): 15 Sikh / Spirituality: Advent Reason: Referral from: Patient (self-referral) Purpose of Referral (if stated): presurgical prayer ASSESSMENT Emotional Disposition: Grateful and Nervous Relational Concerns: Lack of clarity about diagnosis or treatment and Struggling with Autonomy Spiritual Concerns: Struggling with transition or change INTERVENTIONS Empowerment: Informed patient of spiritual care resources available, Normalized experience of patient/family, and Provided Healing Services Exploration: Explored emotional needs and resources, Explored relational needs and resources, Explored spiritual needs and resources, and Facilitated life review Relationship Building: Explored interpersonal dynamics Ritual: Provided prayer OUTCOMES Patient debriefed/defused their experience, Patient expressed gratitude, Patient expressed humor, Patient's distress reduced, Identified meaningful connections, Relational resources utilized, and Spiritual resources utilized PLAN Follow-up not needed COMMENTS: Batch Analyst attended patient as referred for patient-requested prayer. Batch Analyst also oriented patient and family to available spiritual care resources. Patient expressed gratitude. SIGNATURE: Chaplain Isai PATIENT NAME: Bhavana Delgadillo DATE: February 21, 2024 TIME: 10:09 AM PAGER/CONTACT #: [phone] [facility] ANES PRE-OPon 02-21-2024 ANES PRE-OP HNO ID: [id number] Author: BRIJESH WILLSON MD Service: Anesthesiology Author Type: Physician Type: Anesthesia Preprocedure Evaluation Filed: 02/21/2024 12:39 Note Text: ANESTHESIOLOGY DAY OF SURGERY NOTE : 1975 Procedure Information Anesthesia Start Date/Time: 02/21/24 1046 Procedures: INTRAOPERATIVE ID OF SENTINEL LYMPH NODE(S) INCL'D INJECTION OF NON-RAD DYE WHEN PERFORMED WIDE LOCAL EXCISION LEFT LEG MELENOMA (Left) Location: [place] 01 / [place] Surgeons: Maxine Tatum MD Estimated body mass index is 33.76 kg/m? as calculated from the following: Height as of 01/19/24: 162.6 cm (5' 4). Weight as of this encounter: 89.2 kg (196 lb 10.4 oz). Most recent hematocrit and potassium results: No results found for this basename: HCT,HEMATOCRIT,K,POTASSI UM Relevant Problems No relevant active problems I - PHYSICAL EVALUATION AIRWAY Patient intubated: No. Tracheostomy tube not present Mallampati: II. TM distance: >3 FB. Neck ROM: full ROM without neurological symptoms. Mouth opening: adequate. Short neck: no. Thick neck: no DENTAL Dental findings: teeth intact. II - ANESTHESIA PLAN ASA Score: 2 Anesthetic Plan: general Airway type: ETT NPO Status: adequate [place] Monitoring Plan Monitoring plan: standard ASA. Post Procedure Analgesic Plan Postoperative analgesic plan: multimodal analgesia. Informed Consent Anesthetic risks, benefits, alternatives, personnel and consent discussed: yes. Patient / Responsible Libertarian agrees to proceed: yes Patient / Surrogate agrees to blood products: blood products not planned Significant changes in the patient condition since the History and Physical, not otherwise documented in primary service progress note: no. Potential Anesthesia issues that may suggest increased risk of complications or contraindication to planned procedure: none. Vitals Value Taken Time BP 139/78 02/21/24 1046 Pulse 78 02/21/24 0851 Resp 16 02/21/24 0851 Temp 36.4 ?C (97.5 ?F) 02/21/24 0851 SpO2 100 % 02/21/24 0851 Facility-Administered Medications as of 02/21/2024 Medication Dose Route Frequency - [COMPLETED] enoxaparin 40 mg injection (LOVENOX) 40 mg SUBCUTANEOUS ONCE - lidocaine (PF) 10 mg/mL (1 %) 1-2 mg injection (XYLOCAINE) 0.1-0.2 mL INTRADERMAL PRN - NaCl 0.9% iv flush bag 20 mL INTRAVENOUS PRN - [COMPLETED] acetaminophen 975 mg tab(s) (TYLENOL) 975 mg ORAL Pre-Op Once - [COMPLETED] celecoxib 400 mg cap(s) (CeleBREX) 400 mg ORAL Pre-Op Once - [COMPLETED] gabapentin 300 mg cap(s) (NEURONTIN) 300 mg ORAL Pre-Op Once - [COMPLETED] ceFAZolin iv piggyback 2 g in D5W (iso-osmotic) 100 mL (ANCEF) 2 g INTRAVENOUS Pre-Op Once - NaCl 0.9% irrigation solution X (OR/PROCEDURE) PRN - lidocaine-EPINEPHrine (PF) 50 mL, sodium bicarbonate 20 mL in NaCl (PF) 0.9% 100 mL X (OR/PROCEDURE) PRN - isosulfan blue 1 % injection (LYMPHAZURIN) X (OR/PROCEDURE) PRN Outpatient Medications as of 02/21/2024 Medication Sig - multivit with calcium,iron,min (WOMEN'S DAILY MULTIVITAMIN ORAL) Take by mouth. - calcium carbonate (CALCIUM 500 ORAL) Take by mouth. - fish oil/borage/flax/om3,6,9 1 (OMEGA 3-6-9 ORAL) Take by mouth. I have interviewed and examined the patient. I have reviewed the medical record and/or the pre-anesthesia evaluation, pertinent labs, and test results. This contains updated information obtained within 48 hours of Surgery/Procedure. SIGNATURE: Brijesh Willson MD PATIENT NAME: Bhavana Delgadillo DATE: February 21, 2024 TIME: 12:39 PM CSN: [id number] [facility] BRIEF OP NOTon 02-21-2024 BRIEF OP NOT HNO ID: [id number] Author: JAHAIRA NAVARRO MD Service: General Surgery Author Type: Resident Type: Brief Op Note Filed: 02/21/2024 13:16 Note Text: -------- Attestation signed by Maxine Tatum MD at 02/21/2024 3:14 PM Attending Note I evaluated the patient and personally participated in the ortiz components. I agree with the resident's findings and plan as documented and have discussed the case and management of the patient's care with the resident. Signature: Maxine Tatum MD Date: 02/21/2024 Time: 3:13 PM -------- BRIEF OPERATIVE / PROCEDURE NOTE LOG ID: [id number] SURGERY/PROCEDURE DATE: 02/21/2024 INCISION/PROCEDURE START TIME: 11:15 AM INCISION CLOSE/PROCEDURE END TIME: 12:46 PM SURGEON(S)/PROCEDURALIST (S) AND MARINE WELDER(S): Surgeons and Role: * Maxine Tatum MD - Primary * Jahaira Navarro MD - Resident - Assisting No Additional Staff SURGERY/PROCEDURE(S): 1) Wide local excision of left lower extremity melanoma 2) Left inguinal sentinel lymph node biopsy with use of double tracer ANESTHESIA: General FINDINGS: Hot and blue left inguinal sentinel lymph node ESTIMATED BLOOD LOSS: 10 mls SPECIMENS: ID Type Source Tests Collected by Time Destination A : LEFT INGUINAL SENTINEL LYMPH NODE, HOT AND BLUE Tissue Lymph Node, Left, [place] SURGICAL PATHOLOGY Maxine Tatum MD 02/21/2024 11:54 AM B : LEFT LEG WIDE LOCAL EXCISION, SINGLE STAPLE SUPERIOR, DOUBLE STAPLE TIBIAL Tissue Skin, Wide Excision SURGICAL PATHOLOGY Maxine Tatum MD 02/21/2024 12:13 PM COMPLICATIONS: None CLOSURE TECHNIQUE: Primary PRE-OP/PRE-PROCEDURE DIAGNOSIS: Left lower extremity melanoma POST-OP/POST-PROCEDURE DIAGNOSIS: Same as Preop Patient was accompanied to the next level of care by a licensed practitioner from the surgical team pending completion of this brief op note (or operative note) SIGNATURE: Jahaira Navarro MD PATIENT NAME: Bhavana Delgadillo DATE: February 21, 2024 TIME: 1:[address] [facility] HISTORY PHYSICALon HISTORY PHYSICAL HNO ID: [id number] Author: MAXINE TATUM MD Service: General Surgery Author Type: Physician Type: H&P Filed: 02/21/2024 10:08 Note Text: History and Physical: Name: Bhavana Delgadillo Age: [age] year old Sex: Bhavana Delgadillo : 1975 Referring Provider: Cassia Bryson PA-C Subjective CHIEF COMPLAINT: Left pretibial Melanoma ONCOLOGIC HISTORY: 01/04/2024: Melanoma of Left lower leg HISTORY OF PRESENT ILLNESS: Ms. Delgadillo is a 48 year old female who presents for initial evaluation for newly diagnosed left pretibial melanoma. She states that she has had a mole on her lower left leg for many years and noted a change in size recently. Had the lesion biopsied which returned as melanoma. New Skin Lesion: No Changing size/shape: Yes Bleeding: No Other concerning lesions/nodules: No Prior history of melanoma: No History of sunburns:Yes History of tanning bed use: Yes Family history of Melanoma: No Anatomic Location: left distal medial pretibial region Breslow Depth: 1mm Ulceration: No Mitosis: 2/m2 Here today for WLE and SLNB. PAST MEDICAL HISTORY PAST MEDICAL HISTORY Diagnosis Date Malignant melanoma (HCC) PAST SURGICAL HISTORY PAST SURGICAL HISTORY Procedure Laterality Date SECTION HX x3 PAST SURGICAL HISTORY OF 2023 skin lesion biopsy Current Outpatient Medications on File Prior to Visit Medication Sig multivit with calcium,iron,min (WOMEN'S DAILY MULTIVITAMIN ORAL) Take by mouth. calcium carbonate (CALCIUM 500 ORAL) Take by mouth. fish oil/borage/flax/om3,6,9 1 (OMEGA 3-6-9 ORAL) Take by mouth. No current facility-administered medications on file prior to visit. ALLERGIES ALLERGIES No Known Allergies FAMILY HISTORY FAMILY HISTORY Problem Relation Age of Onset Breast Cancer Maternal Aunt Breast Cancer Maternal Aunt Breast Cancer Maternal Aunt SOCIAL HISTORY Social History Tobacco Use Smoking status: Never Smokeless tobacco: Never Substance Use Topics Alcohol use: Yes Comment: less than 1 per week Drug use: Never I personally reviewed Tobacco Allergies Meds Problems Med Hx Surg Hx Fam Hx Objective PHYSICAL EXAM: BP 124/86 Ht 5' 4 (1.63m) Wt 190 lb (86.2kg) BMI 32.60 kg/(m2). Physical Exam Constitutional: General: She is not in acute distress. HENT: Head: Normocephalic and atraumatic. Eyes: Pupils: Pupils are equal, round, and reactive to light. Cardiovascular: Rate and Rhythm: Normal rate and regular rhythm. Heart sounds: Normal heart sounds. Pulmonary: Effort: Pulmonary effort is normal. No respiratory distress. Breath sounds: Normal breath sounds. No stridor. Abdominal: General: There is no distension. Palpations: Abdomen is soft. Tenderness: There is no abdominal tenderness. Musculoskeletal: General: No deformity. Normal range of motion. Lymphadenopathy: Cervical: No cervical adenopathy. Right cervical: No superficial or posterior cervical adenopathy. Left cervical: No superficial or posterior cervical adenopathy. Upper Body: Right upper body: No supraclavicular or axillary adenopathy. Left upper body: No supraclavicular or axillary adenopathy. Lower Body: No right inguinal adenopathy. No left inguinal adenopathy. Skin: General: Skin is warm and dry. Findings: Lesion present. No erythema or rash. Neurological: Mental Status: She is alert and oriented to person, place, and time. Psychiatric: Judgment: Judgment normal. DATA: Labs: N/A Images: N/A Pathology Report: Left Medial Distal Pretibial Region: Melanoma Histologic Type: superficial spreading Maximum tumor thickness: 1.0 mm Ulceration: not identified Margins: Positive Peripheral margins involved by melanoma in situ Mitotic index: 2/mm2 Microsatellites: not identified LVI: not identified PNI: not identified Regression: not identified Pathologic stage: pT1b Assessment/Plan Ms. Delgadillo is a 48 year old female with new left pretibial melanoma. Discussed with her the recommendations for a WLE with SLNB. Using the Melanoma [place] risk calculator, she has a 12% risk of a positive sentinel lymph node. We discussed briefly that if the lymph nodes returned positive, that adjuvant immunotherapy may be an option. Surgical Planning: WLE: Yes SLNB: Yes Adjacent tissue rearrangement, possible skin graft: No Plastics to close: No Cardiac History: no On ASA or Anticoagulants: no Pacemaker/defibrillator/ implanted device: no Cancer Staging Malignant melanoma of left lower extremity including hip (HCC) Staging form: Melanoma of the Skin, AJCC 8th Edition - Clinical stage from 01/19/2024: Stage IB (cT1b, cN0, cM0) - Signed by Maxine Tatum MD on 01/19/[address] [facility] NM LYMPH NODE IMAGINGon 02-04 NM LYMPH NODE IMAGING * * *Final Report* * * DATE OF EXAM: Feb 21 2024 8:34AM [facility] 0033 - [place] LYMPH NODE IMAGING / PROCEDURE REASON: * * * * Physician Interpretation * * * * EXAM: CUTANEOUS LYMPHOSCINTIGRAPHY HISTORY: Left leg melanoma Preoperative sentinel lymph node mapping. TECHNIQUE: * Injection given with Dr Gannon, Patient identity verified by having them verbalize their name and date of . Injection site was verified with the electronic medical record, patient, and nuclear physics teacher prior to radiopharmaceutical administration. Safety time out was performed prior to injection and site was cleaned in usual sterile fashion. * 1.08 millicuries of filtered technetium-99m sulfur colloid were injected in 4 aliquots intradermally around the aforementioned skin lesion site. * Immediate dynamic images were acquired to confirm location. Subsequent static pelvis images were obtained. * Fused images created and sent to the imaging archive. RESULTS: Two foci of activity in the left inguinal region, consistent with the sentinel lymph nodes. No other areas of tracer accumulation to suggest other possible sentinel lymph node sites. IMPRESSION: Two sentinel lymph nodes in the left inguinal region. Sports Equipment Racker: PSCB Transcribe Date/Time: Feb 21 2024 9:33A Dictated by : STACI HUSTON MD This examination was interpreted and the report reviewed and electronically signed by: STACI HUSTON MD on Feb 21 2024 9:36AM EST [id number] [facility] OPERATIVE NOon 02-21-2024 OPERATIVE NO HNO ID: [id number] Author: MAXINE TATUM MD Service: General Surgery Author Type: Physician Type: Operative Report Filed: 02/21/2024 13:33 Note Text: OPERATIVE/PROCEDURE REPORT LOG ID: [id number] Surgery/Procedure Date: 02/21/2024 Incision/Procedure Start Time: 11:15 AM Incision Close/Procedure End Time: 12:46 PM Surgeon(s)/Proceduralist (s) and Line Service Person(s): Surgeons and Role: * Maxine Tatum MD - Primary * Jahaira Navarro MD - Resident - Assisting No Additional Staff Procedure(s): Wide local excision of melanoma of left lower leg and left inguinal sentinel lymph node biopsy Anesthesia: General Indications for Surgery: Ms. Bhavana Delgadillo is a 48 year old female with a history of melanoma on left lower leg Findings: 1 hot and blue left inguinal lymph node. Skin biopsy site without residual pigmentation. Procedure Details: Prior to the operation, the patient was seen in the preoperative holding area where the site and side were marked. The patient was then taken to radiology where they were injected with radiocolloid by nuclear medicine radiology. A post-procedure lymphoscintigraphy showed localization of the sentinel node to the left inguinal lymph node basin. The patient was brought to the operating room after a preoperative huddle was performed, confirming the correct patient, procedure, and site. General anesthesia was induced. The patient was positioned supine with both arms out. Antibiotics were admininstered within one hour of incision. Surgical timeout was performed prior to making incision to confirm correct patient, procedure, and site with all members of the team in agreement. The dermis around the index site was then injected with lymphazurin blue. The patient was then prepped and draped in usual sterile fashion. The area of maximum radioactive uptake in the left inguinal lymph node basin was identified using the gamma probe. A transverse incision was made in this area and extended through the superficial fascia. The gamma probe was then used to direct dissection toward the sentinel lymph node as well as identifying any blue lymphatics or lymph nodes. Clips were used to secure the lymphatics and the node was dissected free. The node was hot and blue. The ex vivo count of the node was measured and the lymph node basin was explored with the gamma probe for any nodes with greater than 10% of this count. The basin was also explored for any additional blue or palpable lymph nodes. No additional lymph nodes were identified. Hemostasis was achieved and the incision was closed in layers and skin glue applied. Attention was then turned to the wide local excision of the index site located on the left lower leg. A 1 cm circumferential margin was marked around the primary lesion. This created a 4.5 cm diameter excision. The excision was made elliptical with the long axis of closure in the longitudinal axis of the lower leg. The incision was made sharply and carried down to the level of the fascia using electrocautery. The specimen was oriented, marked, and passed off to Pathology. The total length of the incision was 6.5 cm. Cutaneous flaps were created by undermining the subcutaneous tissue off of the deep fascia for 1 cm. Once this was completed, the incision was able to be closed with acceptable amount of tension due to the mobility of the flaps. The incision was closed with a combination of various sized vicryl sutures in multiple layers. Skin glue was applied. At the completion of the case, sponge, lap, and instrument counts were correct x2. The patient tolerated the procedure well, was extubated in the operating room, and taken to the PACU in stable condition. Commission on Cancer - Standard 5.5: Wide Local Excision for Primary Cutaneous Melanoma Wide Local Excision for Primary Cutaneous Melanoma - Excision 1 (Lower Leg - Left) Operation performed with curative intent Yes Original Breslow thickness of the lesion 1.0 mm (to the tenth of a millimeter) Clinical margin width (measured from the edge of the lesion or the prior excision scar) 1 cm Depth of excision Full-thickness skin/subcutaneous tissue down to fascia (melanoma) Pre-Op/Pre-Procedure Diagnosis: Melanoma of left leg Post-Op/Post-Procedure Diagnosis: Same Estimated Blood Loss: 10 mls Specimens: ID Type Source Tests Collected by Time Destination A : LEFT INGUINAL SENTINEL LYMPH NODE, HOT AND BLUE Tissue Lymph Node, Left, Buchanan SURGICAL PATHOLOGY Maxine Tatum MD 02/21/2024 11:54 AM B : LEFT LEG WIDE LOCAL EXCISION, SINGLE STAPLE SUPERIOR, DOUBLE STAPLE TIBIAL Tissue Skin, Wide Excision SURGICAL PATHOLOGY Maxine Tatum MD 02/21/2024 12:13 PM Implantable Devices: None Drains: None Complications: None I/primary surgeon/proceduralist performed the procedure with assistance. Maxine Tatum MD Surgical Oncology Normal [facility] SURGICAL PATHOLOGYon 024 CASE REPORT Normal [facility] Comment on above: Order Comment: Speci men Type: TISSUE SPECIMEN Ordering Facility: [facility] Address: [address] [place] [address] Result Comment: Surg [facility] Pathology Report Case: [id number] Authorizing Provider: Maxine Tatum MD Collected: 02/21/2024 11:54 AM Ordering Location: [facility] Received: 02/22/2024 07:13 AM Pathologist: Byron Cannon MD Specimens: A) - Lymph Node, Left, Buchanan, LEFT INGUINAL SENTINEL LYMPH NODE, HOT AND BLUE B) - Skin, Wide Excision, LEFT LEG WIDE LOCAL EXCISION, SINGLE STAPLE SUPERIOR, DOUBLE STAPLE TIBIAL Performed By: #### S #### [facility] CLIA [id number] [address] CLINICAL HISTORY Normal [facility] Comment on above: Order Comment: Speci men Type: TISSUE SPECIMEN Ordering Facility: [facility] Address: [address] [place] [address] Result Comment: Pre- op diagnosis: Malignant melanoma of left lower extremity including hip (HCC) [C43.72] Performed By: #### S #### [facility] CLIA [id number] [address] DIAGNOSIS COMMENT Normal [facility] Comment on above: Order Comment: Speci men Type: TISSUE SPECIMEN Ordering Facility: [facility] Address: [address] [place] [address] Result Comment: Immu nohistochemical staining for SOX10, HMB45 and Mart1/Melan-A were performed on all submitted tissue blocks of lymph node from part A and show no evidence of metastatic melanoma. Multiple additional H&E-stained deeper sections were examined from selected blocks (B5, B6) from part B to evaluate margin status. Laboratory Developed Test (LDT) Disclaimer: Performance characteristics of immunohistochemical, immunofluorescent and chromogenic in-situ hybridization tests have been determined by the performing laboratory within [facility]???s Rony Maldonado Pathology and Laboratory Medicine Department ([facility], [facility], [facility], [facility], [facility], [facility], or [facility]) in a manner consistent with CLIA requirements. One or more of these tests have not been cleared or approved by the FDA. [facility] is regulated under CLIA as qualified to perform high-complexity testing. These tests are used for clinical purposes. They should not be regarded as investigational or for research. Positive and negative controls stain appropriately. Performed By: #### S #### [facility] CLIA [id number] [address] FINAL DIAGNOSIS Normal [facility] Comment on above: Order Comment: Speci men Type: TISSUE SPECIMEN Ordering Facility: [facility] Address: [address] [place] [address] Result Comment: [employer] Abbott entinel lymph node, left inguinal, excision: - One benign lymph node (0/1). See comment. B. Skin, left leg, wide local excision: - Focal residual melanoma in situ. See comment. - Surgical margins negative. - Dermal scar and biopsy site changes. Performed By: #### S #### [facility] CLIA [id number] [address] FINAL PERFORMING LAB Normal [facility] Comment on above: Order Comment: Speci men Type: TISSUE SPECIMEN Ordering Facility: [facility] Address: [address] [place] [address] Result Comment: Diag nostic interpretation performed at [facility], [address] [place] [address] CLIA# [id number] Fishing Guide: Casa Fernández M.D. Performed By: #### S #### [facility] CLIA [id number] [address] GROSS DESCRIPTION Normal [facility] Comment on above: Order Comment: Speci lenin Type: TISSUE SPECIMEN Ordering Facility: [facility] Address: [address] [place] [address] Result Comment: A. L ymph Node, Left, Buchanan Received in formalin labeled as left inguinal sentinel lymph node hot and blue is a santos, soft possible lymph node with scantly adherent adipose tissue measuring 4.5 x 1.5 x 0.8 cm. The specimen is totally submitted in 3 cassettes. B. Skin, Wide Excision Received in formalin labeled as left leg wide local excision is an oriented elliptical fragment of lightly pigmented wrinkled skin with underlying subcutaneous tissue measuring 6.3 x 2.3 x 2.1 cm. The specimen is oriented with a single staple at superior and double staple at tibial. A centrally located santos, slightly depressed areas identified measuring 0.7 x 0.5 cm. This area of interest is located 0.7 cm from tibial, 1.1 cm from fibular, 2.7 cm from inferior, and 3.3 cm from superior. The remaining wrinkled skin surfaces unremarkable. The specimen is inked as follows: Tibial blue, fibular orange, and deep margin black. The specimen is sectioned to reveal the depressed area extends 0.1 cm below the skin surface, located 2 cm from the closest deep margin. The remaining cut surfaces are predominantly fatty. Manager Business Operations sections to include the entire area of interest are submitted sequentially from inferior to superior as follows: B1 inferior tip outside sales representative insurance perpendicular sections; B2 superior tip outside sales representative insurance perpendicular sections; B3 section adjacent to area of interest; B4-B6 entire lesion; B7 section adjacent to area of interest. Gross examination performed at [facility], [address] [place] [address] RSA February 22, 2024 10:12 AM Performed By: #### S #### [facility] CLIA [id number] [address] [place] [address] CNOVon 01-19-2024 CNOV Office Visit (AGGENS 3) -------- LEONABHAVANA HWANG ([id number]) 1975 F Date Time Provider Department 01/19/24 9:30 AM MAXINE TATUM AGGENS3 During your visit today, we recorded the following information about you: Blood pressure Weight Height 124/86 86.2 kg 1.626 m Maxine Tatum MD 01/19/2024 11:12 AM Signed Maxine Tatum MD Surgical Oncology 1 [facility], [address] [place] [address] Name: Bhavana Leona Age: [age] year old Sex: Bhavana Delgadillo : 1975 Referring Provider: Cassia Bryson PA-C Subjective CHIEF COMPLAINT: Left pretibial Melanoma ONCOLOGIC HISTORY: 01/04/2024: Melanoma of Left lower leg HISTORY OF PRESENT ILLNESS: Ms. Delgadillo is a 48 year old female who presents for initial evaluation for newly diagnosed left pretibial melanoma. She states that she has had a mole on her lower left leg for many years and noted a change in size recently. Had the lesion biopsied which returned as melanoma. New Skin Lesion: No Changing size/shape: Yes Bleeding: No Other concerning lesions/nodules: No Prior history of melanoma: No History of sunburns:Yes History of tanning bed use: Yes Family history of Melanoma: No Anatomic Location: left distal medial pretibial region Breslow Depth: 1mm Ulceration: No Mitosis: 2/m2 PAST MEDICAL HISTORY Diagnosis Date Malignant melanoma (HCC) PAST SURGICAL HISTORY Procedure Laterality Date SECTION HX x3 PAST SURGICAL HISTORY OF 2023 skin lesion biopsy Current Outpatient Medications on File Prior to Visit Medication Sig multivit with calcium,iron,min (WOMEN'S DAILY MULTIVITAMIN ORAL) Take by mouth. calcium carbonate (CALCIUM 500 ORAL) Take by mouth. fish oil/borage/flax/om3,6,9 1 (OMEGA 3-6-9 ORAL) Take by mouth. No current facility-administered medications on file prior to visit. ALLERGIES No Known Allergies FAMILY HISTORY Problem Relation Age of Onset Breast Cancer Maternal Aunt Breast Cancer Maternal Aunt Breast Cancer Maternal Aunt Social History Tobacco Use Smoking status: Never Smokeless tobacco: Never Substance Use Topics Alcohol use: Yes Comment: less than 1 per week Drug use: Never I personally reviewed Tobacco Allergies Meds Problems Med Hx Surg Hx Fam Hx Objective PHYSICAL EXAM: BP 124/86 Ht 5' 4 (1.63m) Wt 190 lb (86.2kg) BMI 32.60 kg/(m2). Physical Exam Constitutional: General: She is not in acute distress. HENT: Head: Normocephalic and atraumatic. Eyes: Pupils: Pupils are equal, round, and reactive to light. Cardiovascular: Rate and Rhythm: Normal rate and regular rhythm. Heart sounds: Normal heart sounds. Pulmonary: Effort: Pulmonary effort is normal. No respiratory distress. Breath sounds: Normal breath sounds. No stridor. Abdominal: General: There is no distension. Palpations: Abdomen is soft. Tenderness: There is no abdominal tenderness. Musculoskeletal: General: No deformity. Normal range of motion. Lymphadenopathy: Cervical: No cervical adenopathy. Right cervical: No superficial or posterior cervical adenopathy. Left cervical: No superficial or posterior cervical adenopathy. Upper Body: Right upper body: No supraclavicular or axillary adenopathy. Left upper body: No supraclavicular or axillary adenopathy. Lower Body: No right inguinal adenopathy. No left inguinal adenopathy. Skin: General: Skin is warm and dry. Findings: Lesion present. No erythema or rash. Neurological: Mental Status: She is alert and oriented to person, place, and time. Psychiatric: Judgment: Judgment normal. DATA: Labs: N/A Images: N/A Pathology Report: Left Medial Distal Pretibial Region: Melanoma Histologic Type: superficial spreading Maximum tumor thickness: 1.0 mm Ulceration: not identified Margins: Positive Peripheral margins involved by melanoma in situ Mitotic index: 2/mm2 Microsatellites: not identified LVI: not identified PNI: not identified Regression: not identified Pathologic stage: pT1b Assessment/Plan Ms. Delgadillo is a 48 year old female with new left pretibial melanoma. Discussed with her the recommendations for a WLE with SLNB. Using the Melanoma [place] risk calculator, she has a 12% risk of a positive sentinel lymph node. We discussed briefly that if the lymph nodes returned positive, that adjuvant immunotherapy may be an option. Surgical Planning: WLE: Yes SLNB: Yes Adjacent tissue rearrangement, possible skin graft: No Plastics to close: No Cardiac History: no On ASA or Anticoagulants: no Pacemaker/defibrillator/ implanted device: no Cancer Staging Malignant melanoma of left lower extremity including hip (HCC) Staging form: Melanoma of the Skin, AJCC 8th Edition - Clinical stage from 01/19/2024 (more content not included)... Normal [facility] Lenore 01-12-2024 ERNAN Telephone (AGGENS3) -------- BHAVANA DELGADILLO ([id number]) 1975 F Date Time Provider Department 01/12/24 JIM LARSON3 During your visit today, we recorded the following information about you: Maryjo An MA 01/12/2024 1:39 PM Signed Left a message with Bhavana to see if she wants to get scheduled with [facility] or [facility] for left medial distal pretibal melanoma. Please ask pt if she has insurance. Called [facility] they said she is self pay there. Going to let pt know she has to call [facility] at [phone] Allergies As of Date: 01/12/2024 (Not on File) Date Reviewed: Never Reviewed Reason for Visit: Appointment [186] Problem List As Of Date: 01/12/2024 (None) Encounter Status:Closed by MARYJO AN on 01/12/24 Normal [facility] CYTOLOGY UMBRELLA SUPERVISOR, CONVERTEDon [facility] Vital Signs Date Time Vital Sign Value Performing Clinician Facility 09-25-2024 09:52-0400 Body height 162.6 cm Maxine Tatum MD Work Phone: [facility] 09-25-2024 09:52-0400 Body mass index (BMI) [Ratio] 32.61 kg/m2 Maxine Tatum MD Work Phone: [facility] 09-25-2024 09:52-0400 Body weight 86.18 kg Maxine Tatum MD Work Phone: [facility] 09-25-2024 09:52-0400 Diastolic blood pressure 78 mm[Hg] Maxine Tatum MD Work Phone: [facility] 09-25-2024 09:52-0400 Heart rate 78 /min Maxine Tatum MD Work Phone: [facility] 09-25-2024 09:52-0400 SaO2% (BldA) [Mass fraction] 98 % Maxine Tatum MD Work Phone: [facility] 09-25-2024 09:52-0400 Systolic blood pressure 124 mm[Hg] Maxine Tatum MD Work Phone: [facility] 07-03-2024 13:29-0400 Body height 163.83 cm Irina Hill MA [employer] 07-03-2024 13:29-0400 Body mass index (BMI) [Ratio] 33.67 kg/m2 Irina Hill MA [employer] 07-03-2024 13:29-0400 Body surface area Derived from formula 1.96 m2 Irina Hill MA [employer] 07-03-2024 13:0400 Body weight 90.38 kg Irina Hill MA [employer] 07-03-2024 13:29-0400 Diastolic blood pressure 85 mm[Hg] Irina Hill MA [employer] Comment on above: Patient Position: Si tting; Cuff Location: Left Arm; Cuff Size: Standard 07-03-2024 13:29-0400 Heart rate 97 /min Irina Hill MA [employer] Comment on above: Pattern: Regular 07-03-2024 13:29-0400 Systolic blood pressure 122 mm[Hg] Irina Hill MA [employer] Comment on above: Patient Position: Si tting; Cuff Location: Left Arm; Cuff Size: Standard 06-06-2024 15:30-0400 Body height 163.83 cm Irina Hill MA [employer] 06-06-2024 15:30-0400 Body mass index (BMI) [Ratio] 32.11 kg/m2 Irina Hill MA [employer] 06-06-2024 15:30-0400 Body surface area Derived from formula 1.92 m2 Irina Hill MA [employer] 06-06-2024 15:30-0400 Body weight 86.18 kg Irina Hill MA [facility] 03-20-2024 11:12-0500 Body height 162.6 cm Maxine Tatum MD Work Phone: [facility] 03-20-2024 11:12-0500 Body mass index (BMI) [Ratio] 33.64 kg/m2 Maxine Tatum MD Work Phone: [facility] 03-20-2024 11:12-0500 Body weight 88.91 kg Maxine Tatum MD Work Phone: [facility] 03-20-2024 11:12-0500 Diastolic blood pressure 80 mm[Hg] Maxine Tatum MD Work Phone: [facility] 03-20-2024 11:12-0500 Heart rate 84 /min Maxine Tatum MD Work Phone: [facility] 03-20-2024 11:12-0500 SaO2% (BldA) [Mass fraction] 97 % Maxine Tatum MD Work Phone: [facility] 03-20-2024 11:12-0500 Systolic blood pressure 130 mm[Hg] Maxine Tatum MD Work Phone: [facility] 01-19-2024 09:14-0500 Body height 162.6 cm Maxine Tatum MD Work Phone: [facility] 01-19-2024 09:14-0500 Body mass index (BMI) [Ratio] 32.61 kg/m2 Maxine Tatum MD Work Phone: [facility] 01-19-2024 09:14-0500 Body weight 86.18 kg Maxine Tatum MD Work Phone: [facility] 01-19-2024 09:14-0500 Diastolic blood pressure 86 mm[Hg] Maxine Tatum MD Work Phone: [facility] 01-19-2024 09:14-0500 Systolic blood pressure 124 mm[Hg] Maxine Tatum MD Work Phone: [facility] Encounters Encounter Date Encounter Type Care Provider Facility Start: 10-18-2024 ambulatory Pooja Mohan Facilit y:[facility] Start: 09-27-2024 ambulatory Pooja Mohan Facilit y:[facility] Start: 09-26-2024 End: 09-26-[address] Pooja Mohan DO Work Phone: -Ultrasound [facility] Start: 09-26-2024 End: 09-26-[address] Pooja Mohan DO -Ultrasound [facility] Work Phone: Start: 09-25-2024 End: 09-25-2024 Office outpatient visit 25 minutes Maxine Tatum MD Work Phone: [facility] Comment on above: Malignant melanoma o f left lower extremity including hip (HCC) (Primary Dx) Start: 09-25-2024 End: 09-26-2024 ambulatory MAXINE TATUM Facility:[facility] Start: 07-03-2024 End: 07-03-2024 Office outpatient new 20 minutes Nava Chavez PA-C Work Phone: [facility] Start: 05-15-2024 End: 05-17-2024 Telephone encounter Maxine Tatum MD Work Phone: OB/Gynecology Start: 03-20-2024 End: 03-20-2024 Postop follow up visit related to original px Maxine Tatum MD Work Phone: [facility] Comment on above: Malignant melanoma o f left lower extremity including hip (HCC) (Primary Dx); Seroma of skin or subcutaneous tissue after dermatologic procedure Start: 03-20-2024 End: 03-20-2024 ambulatory MAXINE TATUM Facility:[facility] Start: 03-16-2024 End: 03-16-2024 Telephone encounter Maxine Tatum MD Work Phone: [facility] Comment on above: 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 [employer] - O ther Start: 03-09-2024 End: 03-09-2024 ambulatory POOJA MOHAN Facility:[facility] Start: 03-09-2024 End: 03-09-2024 Subsequent hospital visit by physician My [facility] (I-Stat) Work Phone: Cat Scan Comment on above: Malignant melanoma o f left lower extremity including hip (HCC) [C43.72] Start: 02-27-2024 End: 02-27-2024 Postop follow up visit related to original px Deanna De Souza MD Work Phone: [facility] Comment on above: Malignant melanoma o f left lower extremity including hip (HCC) (Primary Dx); Seroma of skin or subcutaneous tissue after dermatologic procedure Start: 02-27-2024 End: 02-27-2024 ambulatory DEANNA DE SOUZA Facility:[facility] Start: 02-24-2024 End: 02-24-2024 Orders Only Brittany Johnson RN [facility] Comment on above: Malignant melanoma o f left lower extremity including hip (HCC) (Primary Dx) Start: 02-21-2024 End: 02-21-2024 ambulatory MAXINE TATUM Facility:[facility] Start: 01-23-2024 End: 01-23-2024 Admission to same day surgery center Maxine Tatum MD Work Phone: [facility] Comment on above: Surgery Information Start: 01-23-2024 End: 01-23-2024 E-mail encounter from caregiver Maxine Tatum MD Work Phone: [facility] Start: 01-19-2024 End: 01-19-2024 Office outpatient new 45 minutes Maxine Tatum MD Work Phone: [facility] Comment on above: Malignant melanoma o f left lower extremity including hip (HCC) (Primary Dx) Start: 01-19-2024 End: 03-05-2024 Orders Only Maxine Tatum MD Work Phone: [facility] Comment on above: Malignant melanoma o f left lower extremity including hip (HCC) (Primary Dx) Start: 01-12-2024 End: 01-12-2024 Chart abstracting Jim Larson MD Work Phone: [facility] Start: 01-12-2024 End: 01-12-2024 Telephone encounter Jim Larson MD Work Phone: [facility] Comment on above: Appointment Start: 01-05-2006 Documentation procedure Trae Muniz MD Work Phone: [facility] Start: 01-05-2006 Historic EMR Trae bolden MD Work Phone: [facility] Procedures Date Procedure Procedure Detail Performing Clinician Start: 09-26-2024 Screening mammography Mert Mohan DO Work Phone: Start: 09-26-[address] Juan Jose Mohan DO Work Phone: Start: 03-09-2024 Ct lower extremity w/contrast material Maxine Tatum MD Work Phone: Start: 01-04-2006 CYTOLOGY UMBRELLA SUPERVISOR, CONVERTED Trae Muniz MD Work Phone: Section - 3 or more Irina Hill MA Plan of Treatment Date Care Activity Detail Author Start: 03-27-2025 End: 03-27-2025 Patient encounter procedure 03/27/2025 10:00 AM EST Office Visit [facility] 1 [facility] [address] [place] [address] Tierra Murcia PA-C 1 [place], [place] [phone] 6 MONTH MELANOMA CHECK [facility] Comment on above: 6 MONTH MELANOMA DAKOTA CK Start: 11-05-2024 Influenza vaccination Influenza Vacc ine (#1) [facility] Start: 09-25-2024 End: 09-25-2024 Patient encounter procedure 09/25/2024 8:30 AM EDT Office Visit [facility] [address] [phone] Maxine Tatum MD 1 [place], [place] [phone] (Fax) 6 month check up [facility] Comment on above: 6 month check up Start: 07-03-2024 Patient encounter procedure Medical; [facility] Start: 03-Jul-2024 13:30-04:00 LEATHA [facility] Start: 03-20-2024 End: 03-20-2024 Patient encounter procedure 03/20/2024 11:30 AM EST Office Visit [facility] [address] [phone] Maxine Tatum MD 1 [place], [place] [phone] (Fax) S/P WLE Melanoma [facility] Comment on above: S/P WLE Melanoma Start: 03-13-2024 End: 03-13-2024 Patient encounter procedure [facility] Comment on above: Post op S/P WLE Melanoma Start: 03-09-2024 End: 03-09-2024 Patient encounter procedure 03/09/2024 10:20 AM EST Appointment Cat Scan [address] [place], [place] [address] [place] [facility] [phone] in ofc Cat Scan Comment on above: Sched [facility] [phone] in ofc Start: 02-27-2024 End: 02-27-2024 Patient encounter procedure 02/27/2024 1:15 PM EST Office Visit [facility] [address] [phone] Deanna De Souza MD 1 [place], [place] [phone] (Fax) Post op Incision check [facility] Comment on above: Post op Incision dakota ck Start: 02-21-2024 End: 02-21-2024 Admission to same day surgery center 02/21/2024 10:00 AM EST - 02/21/2024 12:45 PM EST [facility] [address] [place] [address] Maxine Tatum MD 1 [place], [place] [phone] INTRAOPERATIVE ID OF SENTINEL LYMPH NODE(S) INCL'D INJECTION OF NON-RAD DYE WHEN PERFORMED [facility] Comment on above: INTRAOPERATIVE ID OF SENTINEL LYMPH NODE(S) INCL'D INJECTION OF NON-RAD DYE WHEN PERFORMED Start: 02-21-2024 End: 02-21-2024 Excision mal lesion trunk/arm/leg 2.1-3.0 cm EXCISION MALIGNANT LESION ARM 2.1-3.0 CM Malignant melanoma of left lower extremity including hip (HCC) 02/21/2024 10:00 AM EST [facility] Start: 02-21-2024 End: 02-21-2024 Intraop sentinel lymph node id w/dye injection INTRAOPERATIVE ID OF SENTINEL LYMPH NODE(S) INCL'D INJECTION OF NON-RAD DYE WHEN PERFORMED Malignant melanoma of left lower extremity including hip (HCC) 02/21/2024 10:00 AM EST [facility] Start: 02-21-2024 Subsequent hospital visit by physician 02/21/2024 10:00 AM EST Hospital Encounter [facility] [address] [place] [address] Maxine Tatum MD 1 [place], [place] [id number] Malignant melanoma of left lower extremity including hip (HCC) [C43.72] [facility] Comment on above: Malignant melanoma o f left lower extremity including hip (HCC) [C43.72] Start: 02-21-2024 End: 02-21-2024 Patient encounter procedure 02/21/2024 7:30 AM EST Appointment Molecular Imaging 1 [place], [place] [id number] Left lower extremity Molecular Imaging Comment on above: Left lower extremity Start: 01-19-2024 End: 01-19-2024 Patient encounter procedure 01/19/2024 9:30 AM EST Office Visit [facility] 1 [facility] 3rd Floor [place], [place] [id number] Maxine Tatum MD 1 [place], [place] [id number] left medial distal pretibal melanoma [facility] Comment on above: left medial distal p retibal melanoma Start: 11-06-2023 Covid-19 Vaccine ( season) Covid-19 Vaccine ( season) [facility] Start: 11-06-2023 Influenza vaccination Influenza Vacc ine (#1) [facility] Start: 06-28-2023 Pneumococcal Vaccine : 50+ (1 of 1 - PCV) Pneumococcal Vaccine: 50+ (1 of 1 - PCV) [facility] Start: 06-28-2023 Shingrix Vaccine (1 of 2) Shingrix Vaccine (1 of 2) [facility] Start: 2018 Diabetes Screening Diabetes Screenin g [facility] Start: 2018 Lipid panel Lipid Screening [facility] Start: 2018 Screening for malign ant neoplasm of colon [facility] Start: 2013 Screening for malign ant neoplasm of breast Mammogram Screening [facility] Start: 1994 Screening for malign ant neoplasm of cervix Cervical Cancer Screening [facility] Start: 1992 Hepatitis B Vaccine (1 of 3 - 19+ 3-dose series) Hepatitis B Vaccine (1 of 3 - 19+ 3-dose series) [facility] Start: 1992 Urine microalbumin profile DTaP,Tdap,Td Vaccine (1 - Tdap) [facility] Start: 06-28-1991 Anxiety Screening Anxiety Screening [facility] Start: 06-28-1991 Depression Screening Depression Scre ening [facility] Start: 06-28-1991 Hepatitis C screening Hepatitis C Sc anand [facility] Start: 06-28-1991 HIV screening HIV Screening [facility] End: 04-04-2025 CT Lower extremity - left W contrast IV CT COMPLETE LEG (HIP TO TOES) W IVCON LEFT Radiology Routine Malignant melanoma of left lower extremity including hip (HCC) 1 Occurrences starting 03/05/2024 until 04/04/2025 [facility] Work Phone: Comment on above: 1 Occurrences starti ng 03/05/2024 until 04/04/2025 Excision mal lesion trunk/arm/leg 2.1-3.0 cm EXCISION MALIGNANT LESION ARM 2.1-3.0 CM Malignant melanoma of left lower extremity including hip (HCC) [facility] Intraop sentinel lym ph node id w/dye injection INTRAOPERATIVE ID OF SENTINEL LYMPH NODE(S) INCL'D INJECTION OF NON-RAD DYE WHEN PERFORMED Malignant melanoma of left lower extremity including hip (HCC) [facility] End: 02-17-2025 NM Lymph node Views NM LYMPH NODE IMAGING Radiology Routine 1 Occurrences starting 01/19/2024 until 02/17/2025 [facility] Work Phone: Comment on above: 1 Occurrences starti ng 01/19/2024 until 02/17/2025 Payers Date Payer Category Payer Self-pay 2024 Unknown [id number] 2012 Unknown [id number] Unknown [id number] Unknown [id number] Unknown [id number] Social History Date Type Detail Facility Tobacco smoking stat us LAIS Tobacco smoking consumption unknown [facility] Start: 1975 Sex Assigned At Not on file [facility] Start: 01-12-2024 End: 01-19-2024 Gender identity Not on file [facility] Start: 01-12-2024 End: 01-19-2024 Tobacco smoking status NHIS Never smoked tobacco [facility] Start: 01-12-2024 End: 09-25-2024 Alcoholic beverage intake Current drinker of alcohol (finding) [facility] Start: 01-12-2024 End: 01-19-2024 History of Social function [facility] 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 [employer] Tobacco/Smoke Exposure: Tobacco/Smoke Exposure: ; None. [employer]; [employer] None [employer] Work Phone: NEGATED: Highlighted row No Social History Information Available No Social History Information Available [employer] Work Phone: Clinical Notes 01-12-2024 to 09-29-2024 Maxine Tatum MD - 09/25/2024 10:00 AM EDTTelephone Encounter - Andrea Guzmán, [facility] - 05/16/2024 2:31 PM EDTTelephone Encounter - Andrea Guzmán, [facility] - 05/16/2024 2:31 PM EDT Note Date & Type Note Facility 09-29-2024 Radiology Diagnostic study note [facility] Imaging Services [address] [place] [id number] Pelvic (Non ) MR#: [id number] Acct: [id number] Name: BHAVANA DELGADILLO ANN Rep #: [id number] : 1975 F 49 From: Christa Rahman MD PCP: Dr. Pooja Mohan DO Status: RE G CLI Study:Pelvic (Non ) Date of Exam: 09/26/24 Exam# [id number] Ordering Dr: Juan Jose Mohan DO EXAM: US Pelvis Transabdominal and Transvaginal, Complete CLINICAL INDICATION: VAGINAL BLEEDING ABNORMAL TECHNIQUE: Real-time complete transabdominal and transvaginal pelvic ultrasoundwith image documentation. Transvaginal imaging was used for better evaluation of the endometrium and adnexa. COMPARISON: No relevant prior studies available. FINDINGS: UTERUS/CERVIX: Multiple uterine fibroids, largest measuring up to 3.8 cm. Endometrium 1.2 mm thick. The uterus measures 3.8 x 10.0 x 5.9 cm. RIGHT OVARY: Unremarkable. Normal blood flow. The right ovary measures 6.4 x 4.8 x 4.7 cm. LEFT OVARY: Unremarkable. Normal blood flow. The left ovary measures 3.1 x 2.2 x 1.5 cm. FREE FLUID: No free fluid. BLADDER: Unremarkable as visualized. Wall is normal thickness for degree of distention. OTHER FINDINGS: 3.8 cm right renal cyst. US/Pelvic (Non ) IMPRESSION: Uterine fibroids. Reading Location: [facility] CC: Dr. Pooja Mohan, DO ~ [employer] Equipment Racker: Signed [facility] 09-25-2024 History of Presen t illness Narrative Images from the original note were not included. Maxine Tatum MD Surgical Oncology 1 [facility], [address] [place] [address] Name: Bhavana Delgadillo Age: [age] year old Sex: Bhavana Delgadillo : 1975 Referring Provider: Maxine Tatum MD Subjective CHIEF COMPLAINT: Melanoma surveillance ONCOLOGIC HISTORY: 01/04/2024: Melanoma of Left lower leg 02/21/2024: WLE and SLNB; [id number] Anatomic Location: Left lower leg Breslow Depth: 1.0mm Ulceration: No Mitosis: 2/mm2 Buchanan Lymph Node Biopsy: Yes Number of positive SLN: 0/1 HISTORY OF PRESENT ILLNESS: Ms. Delgadillo is a 49 year old female who presents for follow up for history of melanoma. Reports some intermittent swelling in left leg worse on hot, humid days or when traveling. Adjuvant Immunotherapy: No Number of Adjuvant Immunotherapy Cycles: N/A Recurrence: No Location of Recurrence: N/A I personally reviewed Tobacco Allergies Meds Problems Med Hx Surg Hx Fam Hx Objective PHYSICAL EXAM: BP 124/78 Pulse 78 Ht 5' 4 (1.63m) Wt 190 lb (86.2kg) SpO2 98% BMI 32.60 kg/(m^2). Physical Exam Constitutional: General: She is not in acute distress. Appearance: Normal appearance. HENT: Head: Normocephalic and atraumatic. Mouth/Throat: Mouth: Mucous membranes are moist. Eyes: Extraocular Movements: Extraocular movements intact. Cardiovascular: Rate and Rhythm: Normal rate. Pulmonary: Effort: Pulmonary effort is normal. No respiratory distress. Abdominal: General: Abdomen is flat. Palpations: Abdomen is soft. Musculoskeletal: General: Normal range of motion. Cervical back: Normal range of motion. Lymphadenopathy: Lower Body: No left inguinal adenopathy. Skin: General: Skin is warm and dry. Comments: Incision without subcutaneous nodules or pigmented lesions Neurological: General: No focal deficit present. Mental Status: She is alert and oriented to person, place, and time. Mental status is at baseline. Psychiatric: Mood and Affect: Mood normal. Behavior: Behavior normal. Thought Content: Thought content normal. Judgment: Judgment normal. Assessment/Plan Ms. Delgadillo is a 49 year old female with history of melanoma of left lower leg, s/p WLE and SLNB, without evidence of recurrence -Follow up in 6 months with [facility] -Refer to Lymphedema clinic -Continue regular Dermatology screenings -Skin protection with sunscreen and physical barriers discussed. Cancer Staging Malignant melanoma of left lower extremity including hip (HCC) Staging form: Melanoma of the Skin, AJCC 8th Edition - Pathologic stage from 02/21/2024: Stage IA (pT1b, pN0, cM0) - Signed by Maxine Tatum MD on 03/12/2024 Maxine Tatum MD 09/25/2024 [id number] documented in this encounter [facility] 09-25-2024 Note HNO ID: [id number] Author: MAXINE TATUM MD Service: ? Author Type: Physician Type: Progress Notes Filed: 09/25/2024 10:44 Note Text: Maxine Tatum MD Surgical Oncology 1 [facility], [address] [place] [id number] Name: Bhavana Delgadillo Age: [age] year old Sex: Bhavana Delgadillo : 1975 Referring Provider: Maxine Tatum MD Subjective CHIEF COMPLAINT: Melanoma surveillance ONCOLOGIC HISTORY: 01/04/2024: Melanoma of Left lower leg 02/21/2024: WLE and SLNB; [id number] Anatomic Location: Left lower leg Breslow Depth: 1.0mm Ulceration: No Mitosis: 2/mm2 Buchanan Lymph Node Biopsy: Yes Number of positive SLN: 0/1 HISTORY OF PRESENT ILLNESS: Ms. Delgadillo is a 49 year old female who presents for follow up for history of melanoma. Reports some intermittent swelling in left leg worse on hot, humid days or when traveling. Adjuvant Immunotherapy: No Number of Adjuvant Immunotherapy Cycles: N/A Recurrence: No Location of Recurrence: N/A I personally reviewed Tobacco Allergies Meds Problems Med Hx Surg Hx Fam Hx Objective PHYSICAL EXAM: BP 124/78 Pulse 78 Ht 5' 4 (1.63m) Wt 190 lb (86.2kg) SpO2 98% BMI 32.60 kg/(m2). Physical Exam Constitutional: General: She is not in acute distress. Appearance: Normal appearance. HENT: Head: Normocephalic and atraumatic. Mouth/Throat: Mouth: Mucous membranes are moist. Eyes: Extraocular Movements: Extraocular movements intact. Cardiovascular: Rate and Rhythm: Normal rate. Pulmonary: Effort: Pulmonary effort is normal. No respiratory distress. Abdominal: General: Abdomen is flat. Palpations: Abdomen is soft. Musculoskeletal: General: Normal range of motion. Cervical back: Normal range of motion. Lymphadenopathy: Lower Body: No left inguinal adenopathy. Skin: General: Skin is warm and dry. Comments: Incision without subcutaneous nodules or pigmented lesions Neurological: General: No focal deficit present. Mental Status: She is alert and oriented to person, place, and time. Mental status is at baseline. Psychiatric: Mood and Affect: Mood normal. Behavior: Behavior normal. Thought Content: Thought content normal. Judgment: Judgment normal. Assessment/Plan Ms. Delgadillo is a 49 year old female with history of melanoma of left lower leg, s/p WLE and SLNB, without evidence of recurrence -Follow up in 6 months with [facility] -Refer to Lymphedema clinic -Continue regular Dermatology screenings -Skin protection with sunscreen and physical barriers discussed. Cancer Staging Malignant melanoma of left lower extremity including hip (HCC) Staging form: Melanoma of the Skin, AJCC 8th Edition - Pathologic stage from 02/21/2024: Stage IA (pT1b, pN0, cM0) - Signed by Maxine Tatum MD on 03/12/2024 Maxine Tatum MD 09/25/2024 1043 [facility] 05-16-2024 Telephone encounter Note CD READY FOR MARKER DELIVERY AT [facility] RAD[facility] PT IS AWARE [facility] 05-16-2024 Miscellaneous Notes CD READY FOR MARKER DELIVERY AT [facility] RAD[facility] PT IS AWARE Patient would like disk of CT scan on 03/09/24 of her left leg. Arlene Martin documented in this encounter [facility] 05-15-2024 Telephone encounter Note Patient would like disk of CT scan on 03/09/24 of her left leg. Arlene Martin [facility] 03-20-2024 History of Presen t illness Narrative Images from the original note were not included. Maxine Tatum MD Surgical Oncology 1 [facility], [address] [place] [id number] Name: Bhavana Delgadillo Age: [age] year old Sex: Bhavana Delgadillo : 1975 Referring Provider: Maxine Tatum MD Subjective CHIEF COMPLAINT: Melanoma ONCOLOGIC HISTORY: 01/04/2024: Melanoma of Left lower leg 02/21/2024: WLE of left lower leg melanoma and SLNB; [id number] HISTORY OF PRESENT ILLNESS: Ms. Delgadillo is a 48 year old female who presents for postoperative follow up for WLE and SLNB of melanoma of left lower leg. Has had some inguinal incisional wound healing difficulties. Has been having continuous serous drainage from left inguinal incision. Was seen by Dr. De Souza due to concerns for wound infection. Was treated with a week's worth of oral antibiotics. Continues to have drainage but states that it is clear. Reports continuous drainage despite dressings. Patient was supposed to have follow up last week but cancelled due to having the flu. When I spoke to her on the phone at that time, she mentioned that the area had sealed up and was no longer draining and would like to avoid a drain if possible. Today she states that the area is no longer draining. She continues to feel a small lump under the incision consistent with a seroma but otherwise feels well. Date of Surgery:02/21/2024 Anatomic Location: Left lower leg Breslow Depth: 1.0mm Ulceration: No Mitosis: 2/mm2 Buchanan Lymph Node Biopsy: Yes Number of positive SLN: 0/1 PAST MEDICAL HISTORY Diagnosis Date Malignant melanoma (HCC) PAST SURGICAL HISTORY Procedure Laterality Date SECTION HX x3 PAST SURGICAL HISTORY OF 2023 skin lesion biopsy PAST SURGICAL HISTORY OF Left WLE Melanoma Current Outpatient Medications on File Prior to Visit Medication Sig sulfamethoxazole-trimethoprim (BACTRIM DS) 800-160 mg per tablet Take 1 tablet by mouth two times a day. ergocalciferol, vitamin D2, (VITAMIN D2 ORAL) Take 1 tablet by mouth once daily. multivit with calcium,iron,min (WOMEN'S DAILY MULTIVITAMIN ORAL) Take by mouth. calcium carbonate (CALCIUM 500 ORAL) Take by mouth. fish oil/borage/flax/om3,6,9 1 (OMEGA 3-6-9 ORAL) Take by mouth. No current facility-administered medications on file prior to visit. ALLERGIES No Known Allergies FAMILY HISTORY Problem Relation Age of Onset Breast Cancer Maternal Aunt Breast Cancer Maternal Aunt Breast Cancer Maternal Aunt Social History Tobacco Use Smoking status: Never Smokeless tobacco: Never Substance Use Topics Alcohol use: Yes Comment: less than 1 per week Drug use: Never I personally reviewed Tobacco Allergies Meds Problems Med Hx Surg Hx Fam Hx Objective PHYSICAL EXAM: BP 130/80 Pulse 84 Ht 5' 4 (1.63m) Wt 196 lb (88.9kg) SpO2 97% BMI 33.63 kg/(m^2). Physical Exam Constitutional: General: She is not in acute distress. Appearance: Normal appearance. HENT: Head: Normocephalic and atraumatic. Eyes: Extraocular Movements: Extraocular movements intact. Conjunctiva/sclera: Conjunctivae normal. Cardiovascular: Rate and Rhythm: Normal rate and regular rhythm. Pulses: Normal pulses. Heart sounds: Normal heart sounds. Pulmonary: Effort: Pulmonary effort is normal. No respiratory distress. Breath sounds: Normal breath sounds. No stridor. Abdominal: General: There is no distension. Palpations: Abdomen is soft. Tenderness: There is no abdominal tenderness. Musculoskeletal: General: No deformity. Normal range of motion. Cervical back: Normal range of motion. Lymphadenopathy: Cervical: No cervical adenopathy. Skin: General: Skin is warm and dry. Findings: No erythema or rash. Comments: Groin and lower leg incisions well healing; left groin with a seroma deep to the incision. Neurological: General: No focal deficit present. Mental Status: She is alert and oriented to person, place, and time. Mental status is at baseline. Psychiatric: Mood and Affect: Mood normal. Behavior: Behavior normal. Thought Content: Thought content normal. Judgment: Judgment normal. DATA: Images: CT Date of Test: 03/09/2024 IMPRESSION: 2.9 cm left inguinal collection at site of presumed lymph node excision, likely a small seroma. Additional small collection in the medial left calf subcutaneous fat also likely reflects a small postoperative seroma. Images were personally reviewed and interpreted. Assessment/Plan Ms. Delgadillo is a 48 year old female with history of melanoma of left lower leg, s/p WLE and SLNB, now with postoperative seroma vs lymphocele in left inguinal lymph node basin, otherwise doing well. -Discussed local wound care and importance of keeping area dry and clean. -Will see back in clinic when drain has dried up. -Discussed sun protection -Follow up in Dermatology q3m -Follow up in 6 months for skin exam. Cancer Staging Malignant melanoma of left lower extremity including hip (HCC) Staging form: Melanoma of the Skin, AJCC 8th Edition - Pathologic stage from 02/21/2024: Stage IA (pT1b, pN0, cM0) - Signed by Maxine Tatum MD on 03/12/2024 Maxine Tatum MD 03/20/2024 [id number] documented in this encounter [facility] 03-20-2024 Note HNO ID: [id number] Author: MAXINE TATUM MD Service: ? Author Type: Physician Type: Progress Notes Filed: 03/20/2024 12:12 Note Text: Maxine Tatum MD Surgical Oncology 1 [facility], [address] [place] [address] Name: Bhavana Delgadillo Age: [age] year old Sex: Bhavana Delgadillo : 1975 Referring Provider: Maxine Tatum MD Subjective CHIEF COMPLAINT: Melanoma ONCOLOGIC HISTORY: 01/04/2024: Melanoma of Left lower leg 02/21/2024: WLE of left lower leg melanoma and SLNB; [id number] HISTORY OF PRESENT ILLNESS: Ms. Delgadillo is a 48 year old female who presents for postoperative follow up for WLE and SLNB of melanoma of left lower leg. Has had some inguinal incisional wound healing difficulties. Has been having continuous serous drainage from left inguinal incision. Was seen by Dr. De Souza due to concerns for wound infection. Was treated with a week's worth of oral antibiotics. Continues to have drainage but states that it is clear. Reports continuous drainage despite dressings. Patient was supposed to have follow up last week but cancelled due to having the flu. When I spoke to her on the phone at that time, she mentioned that the area had sealed up and was no longer draining and would like to avoid a drain if possible. Today she states that the area is no longer draining. She continues to feel a small lump under the incision consistent with a seroma but otherwise feels well. Date of Surgery:02/21/2024 Anatomic Location: Left lower leg Breslow Depth: 1.0mm Ulceration: No Mitosis: 2/mm2 Buchanan Lymph Node Biopsy: Yes Number of positive SLN: 0/1 PAST MEDICAL HISTORY Diagnosis Date Malignant melanoma (HCC) PAST SURGICAL HISTORY Procedure Laterality Date SECTION HX x3 PAST SURGICAL HISTORY OF 2023 skin lesion biopsy PAST SURGICAL HISTORY OF Left WLE Melanoma Current Outpatient Medications on File Prior to Visit Medication Sig sulfamethoxazole-trimethoprim (BACTRIM DS) 800-160 mg per tablet Take 1 tablet by mouth two times a day. ergocalciferol, vitamin D2, (VITAMIN D2 ORAL) Take 1 tablet by mouth once daily. multivit with calcium,iron,min (WOMEN'S DAILY MULTIVITAMIN ORAL) Take by mouth. calcium carbonate (CALCIUM 500 ORAL) Take by mouth. fish oil/borage/flax/om3,6,9 1 (OMEGA 3-6-9 ORAL) Take by mouth. No current facility-administered medications on file prior to visit. ALLERGIES No Known Allergies FAMILY HISTORY Problem Relation Age of Onset Breast Cancer Maternal Aunt Breast Cancer Maternal Aunt Breast Cancer Maternal Aunt Social History Tobacco Use Smoking status: Never Smokeless tobacco: Never Substance Use Topics Alcohol use: Yes Comment: less than 1 per week Drug use: Never I personally reviewed Tobacco Allergies Meds Problems Med Hx Surg Hx Fam Hx Objective PHYSICAL EXAM: BP 130/80 Pulse 84 Ht 5' 4 (1.63m) Wt 196 lb (88.9kg) SpO2 97% BMI 33.63 kg/(m2). Physical Exam Constitutional: General: She is not in acute distress. Appearance: Normal appearance. HENT: Head: Normocephalic and atraumatic. Eyes: Extraocular Movements: Extraocular movements intact. Conjunctiva/sclera: Conjunctivae normal. Cardiovascular: Rate and Rhythm: Normal rate and regular rhythm. Pulses: Normal pulses. Heart sounds: Normal heart sounds. Pulmonary: Effort: Pulmonary effort is normal. No respiratory distress. Breath sounds: Normal breath sounds. No stridor. Abdominal: General: There is no distension. Palpations: Abdomen is soft. Tenderness: There is no abdominal tenderness. Musculoskeletal: General: No deformity. Normal range of motion. Cervical back: Normal range of motion. Lymphadenopathy: Cervical: No cervical adenopathy. Skin: General: Skin is warm and dry. Findings: No erythema or rash. Comments: Groin and lower leg incisions well healing; left groin with a seroma deep to the incision. Neurological: General: No focal deficit present. Mental Status: She is alert and oriented to person, place, and time. Mental status is at baseline. Psychiatric: Mood and Affect: Mood normal. Behavior: Behavior normal. Thought Content: Thought content normal. Judgment: Judgment normal. DATA: Images: CT Date of Test: 03/09/2024 IMPRESSION: 2.9 cm left inguinal collection at site of presumed lymph node excision, likely a small seroma. Additional small collection in the medial left calf subcutaneous fat also likely reflects a small postoperative seroma. Images were personally reviewed and interpreted. Assessment/Plan Ms. Delgadillo is a 48 year old female with history of melanoma of left lower leg, s/p WLE and SLNB, now with postoperative seroma vs lymphocele in left inguinal lymph node basin, otherwise doing well. -Discussed local wound care and importance of keeping area dry and (more content not included)... [facility] 03-16-2024 Telephone encounter Note OV note, Op report, Pathology report faxed to referring office, [facility] Dermatology. Cornelius NICOLE [facility] 03-16-2024 Miscellaneous Notes OV note, Op report, Pathology report [facility] [facility] Cornelius NICOLE documented in this encounter [facility] 03-09-2024 History of Presen t illness Narrative Radiology Service Progress Note DATE OF SERVICE: March 09, 2024 TIME: 2:29 PM PATIENT IDENTITY VERIFICATION COMPLETED USING TWO (2) STANDARD IDENTIFIERS: Name and Date of confirmed by patient verbally. FALL SCREENING: Has the patient had 2 falls in the last year or 1 fall with injury or currently using an Ambulatory Assistive Device (Walker, Cane, Wheelchair, Crutches, etc.)? No PATIENT GENDER DATA: Female. status: : No status: NO. PATIENT RELEVANT IMPLANT DATA REVIEWED: Yes PATIENT PRESENTS WITH AN IMPLANTABLE OR ATTACHED HEMATOLOGY NURSE EDUCATOR: No ALLERGIES: Reviewed and unchanged CONTRAST ALLERGY: NO. EXAM: CT -CONTRAST INDUCED NEPHROPATHY RISK FACTORS: Not applicable CREATININE: No results found for: CREAT, EGFROTH, EGFRAA P.O.C.T. RESULTS: POC done: Yes, See Lab Tab March 09, 2024 TREATMENT: N/A PERIPHERAL IV DATA: Ambulatory: A peripheral IV was started in the Right antecubital site with a Angio cath: 22 gauge. RADIOLOGY DEPARTMENT: CT; Exam(s) Completed: Lower extremity SIGNATURE: RT Gurpreet(R) PATIENT NAME: Bhavana Delgadillo DATE: March 09, 2024 TIME: 2:29 PM documented in this encounter [facility] 03-09-2024 Note HNO ID: [id number] Author: HIWOT MACKAY RT(R) Service: ? Author Type: Director Health Type: Progress Notes Filed: 03/09/2024 14:30 Note Text: Radiology Service Progress Note DATE OF SERVICE: March 09, 2024 TIME: 2:29 PM PATIENT IDENTITY VERIFICATION COMPLETED USING TWO (2) STANDARD IDENTIFIERS: Name and Date of confirmed by patient verbally. FALL SCREENING: Has the patient had 2 falls in the last year or 1 fall with injury or currently using an Ambulatory Assistive Device (Walker, Cane, Wheelchair, Crutches, etc.)? No PATIENT GENDER DATA: Female. status: : No status: NO. PATIENT RELEVANT IMPLANT DATA REVIEWED: Yes PATIENT PRESENTS WITH AN IMPLANTABLE OR ATTACHED HEMATOLOGY NURSE EDUCATOR: No ALLERGIES: Reviewed and unchanged CONTRAST ALLERGY: NO. EXAM: CT -CONTRAST INDUCED NEPHROPATHY RISK FACTORS: Not applicable CREATININE: No results found for: CREAT, EGFROTH, EGFRAA P.O.C.T. RESULTS: POC done: Yes, See Lab Tab March 09, 2024 TREATMENT: N/A PERIPHERAL IV DATA: Ambulatory: A peripheral IV was started in the Right antecubital site with a Angio cath: 22 gauge. RADIOLOGY DEPARTMENT: CT; Exam(s) Completed: Lower extremity SIGNATURE: RT Gurpreet(R) PATIENT NAME: Bhavana Delgadillo DATE: March 09, 2024 TIME: 2:29 PM [facility] 02-27-2024 Note HNO ID: [id number] Author: DEANNA DE SOUZA MD Service: ? Author Type: Physician Type: Progress Notes Filed: 02/27/2024 14:48 Note Text: B SURGERY PROGRESS NOTE Subjective INTERVAL HISTORY OF PRESENT ILLNESS: Came in today for a wound check of her left groin Started noticing erythema that went about detention down her thigh followed by some fluid drainage through the medial side of her incision that sound by her description to be infected hematoma. After a day of that draining, it changed to serous fluid. Was started on bactrim on Tuesday and erythema almost completely resolved today. Removed bandage and does have serous fluid drainage on palpation, but no current concerns for ongoing infection. Was having fever/chills on Tuesday, but this has resolved over the weekend. Leg incision still with tape dressing over top, but no signs of infection or significant drainage - will leave in place for now Objective PHYSICAL EXAM: There were no vitals taken for this visit. Physical Exam Performed GENERAL: Alert, no distress, cooperative LUNGS: Negative ABDOMEN: Soft, nontender WOUND: Left groin incision with serous drainage, well approximated edges, no erythema or hematoma present; left leg incision healing well; dressing not taken fully down, but no erythema, swelling, or drainage from this site Assessment/Plan 48 year old female s/p WLE LLE melanoma and L inguinal SLNB presenting today for wound check with L groin seroma. --Complete 10 day course of bactrim as prescribed --Dry dressing to groin - change daily and as needed --Keep LLE dressing on until 03/06 and then can take off --Keep follow-up with Dr. Tatum as scheduled in March Danielle De Souza MD B Surgeon [facility] 02-27-2024 History of Presen t illness Narrative [facility] SURGERY PROGRESS NOTE Subjective INTERVAL HISTORY OF PRESENT ILLNESS: Came in today for a wound check of her left groin Started noticing erythema that went about detention down her thigh followed by some fluid drainage through the medial side of her incision that sound by her description to be infected hematoma. After a day of that draining, it changed to serous fluid. Was started on bactrim on Tuesday and erythema almost completely resolved today. Removed bandage and does have serous fluid drainage on palpation, but no current concerns for ongoing infection. Was having fever/chills on Tuesday, but this has resolved over the weekend. Leg incision still with tape dressing over top, but no signs of infection or significant drainage - will leave in place for now Objective PHYSICAL EXAM: There were no vitals taken for this visit. Physical Exam Performed GENERAL: Alert, no distress, cooperative LUNGS: Negative ABDOMEN: Soft, nontender WOUND: Left groin incision with serous drainage, well approximated edges, no erythema or hematoma present; left leg incision healing well; dressing not taken fully down, but no erythema, swelling, or drainage from this site Assessment/Plan 48 year old female s/p WLE LLE melanoma and L inguinal SLNB presenting today for wound check with L groin seroma. --Complete 10 day course of bactrim as prescribed --Dry dressing to groin - change daily and as needed --Keep LLE dressing on until 03/06 and then can take off --Keep follow-up with Dr. Tatum as scheduled in March Danielle De Souza MD [facility]B Surgeon documented in this encounter [facility] 02-21-2024 Note HNO ID: [id number] Author: GEORGE COLLINS APRN.CRNA Service: Anesthesiology Author Type: Nurse Broadcast Program Director Type: Anesthesia Procedure Notes Filed: 02/21/2024 11:09 Note Text: ANESTHESIOLOGY PROCEDURE NOTE Airway General Information Procedure Start Time/Medication Administration: 02/21/2024 10:56 AM Procedure End Time: 02/21/2024 10:57 AM Patient location during procedure: OR Timeout Performed Pre-procedure: timeout performed Consent Obtained: Yes Patient identity confirmed: arm band and patient Staffing EDUCATION AND TRAINING COORDINATOR: George Collins APRN.EDUCATION AND TRAINING COORDINATOR Performed by: LISSETT Indications and Patient Condition Indications for airway management: anesthesia Preoxygenated: yes anesthesia circuit Patient position: sniffing Method: asleep Final Airway Details Final airway type: endotracheal airway Final Endotracheal Airway: ETT Cuffed: yes Successful intubation technique: direct laryngoscopy Endotracheal tube insertion site: oral Blade: Taj Blade size: #4 ETT size (mm): 7.0 Measured from: lips Measurement (cm): 22 Placement verified by: capnometry Cormack-Lehane Classification: grade IIa - partial view of glottis Number of attempts at approach: 1 SIGNATURE: George Collins APRN.CRNA PATIENT NAME: Bhavana Delgadillo DATE: February 21, 2024 TIME: 11:08 AM CSN: [id number] [facility] 01-19-2024 History of Presen t illness Narrative Images from the original note were not included. Maxine Tatum MD Surgical Oncology [address] [facility], [address] [place] [address] Name: Bhavana Delgadillo Age: [age] year old Sex: Bhavana Delgadillo : 1975 Referring Provider: Cassia Bryson PA-C Subjective CHIEF COMPLAINT: Left pretibial Melanoma ONCOLOGIC HISTORY: 01/04/2024: Melanoma of Left lower leg HISTORY OF PRESENT ILLNESS: Ms. Delgadillo is a 48 year old female who presents for initial evaluation for newly diagnosed left pretibial melanoma. She states that she has had a mole on her lower left leg for many years and noted a change in size recently. Had the lesion biopsied which returned as melanoma. New Skin Lesion: No Changing size/shape: Yes Bleeding: No Other concerning lesions/nodules: No Prior history of melanoma: No History of sunburns:Yes History of tanning bed use: Yes Family history of Melanoma: No Anatomic Location: left distal medial pretibial region Breslow Depth: 1mm Ulceration: No Mitosis: 2/m2 PAST MEDICAL HISTORY Diagnosis Date Malignant melanoma (HCC) PAST SURGICAL HISTORY Procedure Laterality Date SECTION HX x3 PAST SURGICAL HISTORY OF 2023 skin lesion biopsy Current Outpatient Medications on File Prior to Visit Medication Sig multivit with calcium,iron,min (WOMEN'S DAILY MULTIVITAMIN ORAL) Take by mouth. calcium carbonate (CALCIUM 500 ORAL) Take by mouth. fish oil/borage/flax/om3,6,9 1 (OMEGA 3-6-9 ORAL) Take by mouth. No current facility-administered medications on file prior to visit. ALLERGIES No Known Allergies FAMILY HISTORY Problem Relation Age of Onset Breast Cancer Maternal Aunt Breast Cancer Maternal Aunt Breast Cancer Maternal Aunt Social History Tobacco Use Smoking status: Never Smokeless tobacco: Never Substance Use Topics Alcohol use: Yes Comment: less than 1 per week Drug use: Never I personally reviewed Tobacco Allergies Meds Problems Med Hx Surg Hx Fam Hx Objective PHYSICAL EXAM: BP 124/86 Ht 5' 4 (1.63m) Wt 190 lb (86.2kg) BMI 32.60 kg/(m^2). Physical Exam Constitutional: General: She is not in acute distress. HENT: Head: Normocephalic and atraumatic. Eyes: Pupils: Pupils are equal, round, and reactive to light. Cardiovascular: Rate and Rhythm: Normal rate and regular rhythm. Heart sounds: Normal heart sounds. Pulmonary: Effort: Pulmonary effort is normal. No respiratory distress. Breath sounds: Normal breath sounds. No stridor. Abdominal: General: There is no distension. Palpations: Abdomen is soft. Tenderness: There is no abdominal tenderness. Musculoskeletal: General: No deformity. Normal range of motion. Lymphadenopathy: Cervical: No cervical adenopathy. Right cervical: No superficial or posterior cervical adenopathy. Left cervical: No superficial or posterior cervical adenopathy. Upper Body: Right upper body: No supraclavicular or axillary adenopathy. Left upper body: No supraclavicular or axillary adenopathy. Lower Body: No right inguinal adenopathy. No left inguinal adenopathy. Skin: General: Skin is warm and dry. Findings: Lesion present. No erythema or rash. Neurological: Mental Status: She is alert and oriented to person, place, and time. Psychiatric: Judgment: Judgment normal. DATA: Labs: N/A Images: N/A Pathology Report: Left Medial Distal Pretibial Region: Melanoma Histologic Type: superficial spreading Maximum tumor thickness: 1.0 mm Ulceration: not identified Margins: Positive Peripheral margins involved by melanoma in situ Mitotic index: 2/mm2 Microsatellites: not identified LVI: not identified PNI: not identified Regression: not identified Pathologic stage: pT1b Assessment/Plan Ms. Delgadillo is a 48 year old female with new left pretibial melanoma. Discussed with her the recommendations for a WLE with SLNB. Using the Melanoma [place] risk calculator, she has a 12% risk of a positive sentinel lymph node. We discussed briefly that if the lymph nodes returned positive, that adjuvant immunotherapy may be an option. Surgical Planning: WLE: Yes SLNB: Yes Adjacent tissue rearrangement, possible skin graft: No Plastics to close: No Cardiac History: no On ASA or Anticoagulants: no Pacemaker/defibrillator/implant ed device: no Cancer Staging Malignant melanoma of left lower extremity including hip (HCC) Staging form: Melanoma of the Skin, AJCC 8th Edition - Clinical stage from 01/19/2024: Stage IB (cT1b, cN0, cM0) - Signed by Maxine Tatum MD on 01/19/2024 Maxine Tatum MD 01/19/2024 [id number] documented in this encounter [facility] 01-19-2024 Note HNO ID: [id number] Author: MAXINE TATUM MD Service: ? Author Type: Physician Type: Progress Notes Filed: 01/19/2024 11:12 Note Text: Maxine Tatum MD Surgical Oncology [address] [place] [address], [place] [address] Name: Bhavana Delgadillo Age: [age] year old Sex: Bhavana Delgadillo : 1975 Referring Provider: Cassia Bryson PA-C Subjective CHIEF COMPLAINT: Left pretibial Melanoma ONCOLOGIC HISTORY: 01/04/2024: Melanoma of Left lower leg HISTORY OF PRESENT ILLNESS: Ms. Delgadillo is a 48 year old female who presents for initial evaluation for newly diagnosed left pretibial melanoma. She states that she has had a mole on her lower left leg for many years and noted a change in size recently. Had the lesion biopsied which returned as melanoma. New Skin Lesion: No Changing size/shape: Yes Bleeding: No Other concerning lesions/nodules: No Prior history of melanoma: No History of sunburns:Yes History of tanning bed use: Yes Family history of Melanoma: No Anatomic Location: left distal medial pretibial region Breslow Depth: 1mm Ulceration: No Mitosis: 2/m2 PAST MEDICAL HISTORY Diagnosis Date Malignant melanoma (HCC) PAST SURGICAL HISTORY Procedure Laterality Date SECTION HX x3 PAST SURGICAL HISTORY OF 2023 skin lesion biopsy Current Outpatient Medications on File Prior to Visit Medication Sig multivit with calcium,iron,min (WOMEN'S DAILY MULTIVITAMIN ORAL) Take by mouth. calcium carbonate (CALCIUM 500 ORAL) Take by mouth. fish oil/borage/flax/om3,6,9 1 (OMEGA 3-6-9 ORAL) Take by mouth. No current facility-administered medications on file prior to visit. ALLERGIES No Known Allergies FAMILY HISTORY Problem Relation Age of Onset Breast Cancer Maternal Aunt Breast Cancer Maternal Aunt Breast Cancer Maternal Aunt Social History Tobacco Use Smoking status: Never Smokeless tobacco: Never Substance Use Topics Alcohol use: Yes Comment: less than 1 per week Drug use: Never I personally reviewed Tobacco Allergies Meds Problems Med Hx Surg Hx Fam Hx Objective PHYSICAL EXAM: BP 124/86 Ht 5' 4 (1.63m) Wt 190 lb (86.2kg) BMI 32.60 kg/(m2). Physical Exam Constitutional: General: She is not in acute distress. HENT: Head: Normocephalic and atraumatic. Eyes: Pupils: Pupils are equal, round, and reactive to light. Cardiovascular: Rate and Rhythm: Normal rate and regular rhythm. Heart sounds: Normal heart sounds. Pulmonary: Effort: Pulmonary effort is normal. No respiratory distress. Breath sounds: Normal breath sounds. No stridor. Abdominal: General: There is no distension. Palpations: Abdomen is soft. Tenderness: There is no abdominal tenderness. Musculoskeletal: General: No deformity. Normal range of motion. Lymphadenopathy: Cervical: No cervical adenopathy. Right cervical: No superficial or posterior cervical adenopathy. Left cervical: No superficial or posterior cervical adenopathy. Upper Body: Right upper body: No supraclavicular or axillary adenopathy. Left upper body: No supraclavicular or axillary adenopathy. Lower Body: No right inguinal adenopathy. No left inguinal adenopathy. Skin: General: Skin is warm and dry. Findings: Lesion present. No erythema or rash. Neurological: Mental Status: She is alert and oriented to person, place, and time. Psychiatric: Judgment: Judgment normal. DATA: Labs: N/A Images: N/A Pathology Report: Left Medial Distal Pretibial Region: Melanoma Histologic Type: superficial spreading Maximum tumor thickness: 1.0 mm Ulceration: not identified Margins: Positive Peripheral margins involved by melanoma in situ Mitotic index: 2/mm2 Microsatellites: not identified LVI: not identified PNI: not identified Regression: not identified Pathologic stage: pT1b Assessment/Plan Ms. Delgadillo is a 48 year old female with new left pretibial melanoma. Discussed with her the recommendations for a WLE with SLNB. Using the Melanoma [place] risk calculator, she has a 12% risk of a positive sentinel lymph node. We discussed briefly that if the lymph nodes returned positive, that adjuvant immunotherapy may be an option. Surgical Planning: WLE: Yes SLNB: Yes Adjacent tissue rearrangement, possible skin graft: No Plastics to close: No Cardiac History: no On ASA or Anticoagulants: no Pacemaker/defibrillator/implant ed device: no Cancer Staging Malignant melanoma of left lower extremity including hip (HCC) Staging form: Melanoma of the Skin, AJCC 8th Edition - Clinical stage from 01/19/2024: Stage IB (cT1b, cN0, cM0) - Signed by Maxine Tatum MD on 01/19/2024 Maxine Tatum MD 01/19/2024 1105 [facility] 01-12-2024 Telephone encounter Note Left a message with Bhavana to see if she wants to get scheduled with [facility] for left medial distal pretibal melanoma. Please ask pt if she has insurance. Called [employer] [place] they said she is self pay there. Going to let pt know she has to call [facility] at [phone] [facility] 01-12-2024 Miscellaneous Notes Left a message with Bhavana to see if she wants to get scheduled with [facility] for left medial distal pretibal melanoma. Please ask pt if she has insurance. Called [employer] they said she is self pay there. Going to let pt know she has to call [facility] at [phone] documented in this encounter [facility] Evaluation note Diagnosis Malignant melanoma of left lower extremity including hip (HCC)- Primary Malignant melanoma of skin of lower limb, including hip [facility] Diagnosis Malignant melanoma of left lower extremity including hip (HCC)- Primary Malignant melanoma of skin of lower limb, including hip [facility] Diagnosis Malignant melanoma of left lower extremity including hip (HCC)- Primary Malignant melanoma of skin of lower limb, including hip Seroma of skin or subcutaneous tissue after dermatologic procedure [facility] Malignant melanoma of left lower extremity including hip (HCC)- Primary Malignant melanoma of skin of lower limb, including hip [facility] Diagnosis Malignant melanoma of left lower extremity including hip (HCC) Malignant melanoma of skin of lower limb, including hip [facility] Diagnosis Malignant melanoma of left lower extremity including hip (HCC)- Primary Malignant melanoma of skin of lower limb, including hip Seroma of skin or subcutaneous tissue after dermatologic procedure [facility] Malignant melanoma of left lower extremity including hip (HCC)- Primary Malignant melanoma of skin of lower limb, including hip [facility] noteNo assessment information availableWCorey Hospital Work Phone: Reason for referral (narrative)* Diagnostic Procedure Only (Routine) - New Request Specialty Diagnoses / Procedures Referred By Rocky clemente Referred To Contact MOLECULAR & FUNCTIONAL IMAGING Diagnoses Lymphedema Procedures NM LYMPH NODE IMAGING LYMPHATICS & LYMPH NODES IMAGING Maxine Tatum MD [address] [place] [address] Molecular & Functional Imaging [address] [place] [address] Referral ID Status Reason Start Date Expiration Date Visits Requested Visits Authorized [id number] New Request Auto-Generat ed Referral 4 02/17/2025 1 1 [facility] for referral (narrative)No reason for referral information availableWCorey Hospital Work Phone: Summary Purpose Family History No Family History Records Found Heart Disease Status:Active Comments:Father. from 2nd heart attack Hemophilia Status:Active Comments:Negativ e Family History Of. Advance Directives No Advanced Directives Records FoundNo Advanced Directives Records FoundNo Advanced Directives Records FoundNo Advanced Directives Records Found Reason for Referral Specialty Diagnoses / Procedures Referred By Rocky clemente Referred To Contact CT IMAGING Diagnoses Malignant melanoma of left lower extremity including hip (HCC) Procedures CT COMPLETE LEG (HIP TO TOES) W IVCON LEFT CT LOWER EXTREMITY W/CONTRAST MATERIAL Maxine Tatum MD [address] [place] [address] [place] [id number] Referral ID Status Reason Start Date Expiration Date Visits Requested Visits Authorized [id number] Pending Review Auto-Generat ed Referral 04/04/2025 1 1 Referral ID Status Reason Start Date Expiration Date V isits Requested Visits Authorized [id number] Closed Auto-Generated Referral Patient Cleared - Qualified 100% FAS 03/05/2024 04/04/2025 1 1 Chief Complaint and Reason for Visit Chief Complaint Admit Date abnormal vaginal bleeding September 26 2:01pm Additional Source Comments Source Comments (unrecognize d section and content) In the event this informatio n is protected by the Federal Confidentiality of Alcohol and Drug Abuse Patient Records regulations: The Federal rules restrict any use of the information to criminally investigate or prosecute any alcohol or drug abuse patient.[facility] the event this information is protected by the Federal Confidentiality of Alcohol and Drug Abuse Patient Records regulations: The Federal rules restrict any use of the information to criminally investigate or prosecute any alcohol or drug abuse patient.[facility] Center[facility] the event this information is protected by the Federal Confidentiality of Alcohol and Drug Abuse Patient Records regulations: The Federal rules restrict any use of the information to criminally investigate or prosecute any alcohol or drug abuse patient.[facility] Center[facility] the event this information is protected by the Federal Confidentiality of Alcohol and Drug Abuse Patient Records regulations: The Federal rules restrict any use of the information to criminally investigate or prosecute any alcohol or drug abuse patient.[facility] Center[facility] the event this information is protected by the Federal Confidentiality of Alcohol and Drug Abuse Patient Records regulations: The Federal rules restrict any use of the information to criminally investigate or prosecute any alcohol or drug abuse patient.[facility] Center[facility] the event this information is protected by the Federal Confidentiality of Alcohol and Drug Abuse Patient Records regulations: The Federal rules restrict any use of the information to criminally investigate or prosecute any alcohol or drug abuse patient.[facility] Center[facility] the event this information is protected by the Federal Confidentiality of Alcohol and Drug Abuse Patient Records regulations: The Federal rules restrict any use of the information to criminally investigate or prosecute any alcohol or drug abuse patient.[facility] Center[facility] the event this information is protected by the Federal Confidentiality of Alcohol and Drug Abuse Patient Records regulations: The Federal rules restrict any use of the information to criminally investigate or prosecute any alcohol or drug abuse patient.[facility] Center[facility] the event this information is protected by the Federal Confidentiality of Alcohol and Drug Abuse Patient Records regulations: The Federal rules restrict any use of the information to criminally investigate or prosecute any alcohol or drug abuse patient.[facility] Center[facility] the event this information is protected by the Federal Confidentiality of Alcohol and Drug Abuse Patient Records regulations: The Federal rules restrict any use of the information to criminally investigate or prosecute any alcohol or drug abuse patient.[facility] Center[facility] the event this information is protected by the Federal Confidentiality of Alcohol and Drug Abuse Patient Records regulations: The Federal rules restrict any use of the information to criminally investigate or prosecute any alcohol or drug abuse patient.[facility] Center[facility] the event this information is protected by the Federal Confidentiality of Alcohol and Drug Abuse Patient Records regulations: The Federal rules restrict any use of the information to criminally investigate or prosecute any alcohol or drug abuse patient.[facility] Center[facility] the event this information is protected by the Federal Confidentiality of Alcohol and Drug Abuse Patient Records regulations: The Federal rules restrict any use of the information to criminally investigate or prosecute any alcohol or drug abuse patient.[facility] Reason for Visit (unrecogniz ed section and content) Reason Comments Appointment Reason Comments New Patient Left pretibial melan esha Specialty Diagnoses / Procedures Referred By Rocky t Referred To Contact GENERAL SURGERY Diagnoses Melanoma in situ of lower extremity, left (HCC) Procedures OFFICE/OUTPATIENT NEW HIGH MDM 60 MINUTES Cassia Bryson PA-C [address] [place] [address] Jim Larson MD [address] [place] [address] Referral ID Status Reason Start Date Expiration Date V isits Requested Visits Authorized [id number] Closed Financial Clearance Required - Self Pay Patient Cleared - True Self-Pay required payment collected 01/12/2024 03/12/2024 1 1 Reason Comments Post Op Incision check Reason Comments Radiology CT Specialty Diagnoses / Procedures Referred By Contac t Referred To Contact Diagnoses Malignant melanoma of left lower extremity including hip (HCC) Malignant melanoma of left lower extremity including hip (HCC) [C43.72] Procedures INTRAOP SENTINEL LYMPH NODE ID W/DYE INJECTION MAL LESION TRUNK,ARM,LEG 2.1-3.0 CM INTRAOPERATIVE ID OF SENTINEL LYMPH NODE(S) INCL'D INJECTION OF NON-RAD DYE WHEN PERFORMED EXCISION MALIGNANT LESION ARM 2.1-3.0 CM Maxine Tatum MD [address] [place] [address] [facility] [address] [place] [address] Referral ID Status Reason Start Date Expiration Date Visits Requested Visits Authorized [id number] Authorized Patient Cleared - Qualified 100% FAS 4 04/19/2024 99 99 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 S/P WLE Melanoma Specialty Diagnoses / Procedures [facility] Referred To Contact Diagnoses Malignant melanoma of left lower extremity including hip (HCC) Malignant melanoma of left lower extremity including hip (HCC) [C43.72] Procedures INTRAOP SENTINEL LYMPH NODE ID W/DYE INJECTION MAL LESION TRUNK,ARM,LEG 2.1-3.0 CM INTRAOPERATIVE ID OF SENTINEL LYMPH NODE(S) INCL'D INJECTION OF NON-RAD DYE WHEN PERFORMED EXCISION MALIGNANT LESION ARM 2.1-3.0 CM Maxine Tatum MD [address] [place] [address] [facility] [address] [place] [address] Reason Comments New Patient Established Patient 6 month follow up Me lanoma Specialty Diagnoses / Procedures [facility] Referred To Contact General Surgery / GENERAL SURGERY Diagnoses 6 month check up Procedures EST PATIENT Maxine Tatum MD [address] [place] [address] Phone: tel: fax: Maxine Tatum MD [address] [place] [phone] Phone: tel: fax: Referral ID Status Reason Start Date Expiration Date Visits Requested Visits Authorized [id number] Authorized Patient Cleared - Qualified 100% FAS 09/25/2024 12/24/2024 99 99 INFORMATION SOURCE (unrecogn ized section and content) DATE CREATED AUTHOR 01/14/2024 [facility] DATE CREATED AUTHOR AUTHOR'S ORGANIZ ATION 05/20/2024 [facility] DATE CREATED AUTHOR AUTHOR'S ORGANIZ ATION 09/26/2024 [facility] DATE CREATED AUTHOR AUTHOR'S ORGANIZ ATION 10/04/2024 [facility] Teams (unrecognized sec tion and content) [employer] Wire Finisher Relationship Specialty Start Date End Date Pooja Mohan DO [address] [place] [address] PCP - General Internal Medicine 01/19/24 Maxine Tatum MD [address] [place], [place] [phone] General Surgery 01/19/24 Asbestos Wire Finisher Relationship Specialty Start Date End Date Pooja Mohan DO [address] [place], [place] [address] 652- PCP - General Internal Medicine 01/19/24 Maxine Tatum MD [address] [place], [place] [id number] General Surgery 01/19/24 Asbestos Wire Finisher Relationship Specialty Start Date End Date Pooja Mohan DO [address] [facility] [address] [place], [place] [phone] PCP - General Internal Medicine 01/19/24 Maxine Tatum MD [address] [place], [place] [id number] General Surgery 01/19/24 Asbestos Wire Finisher Relationship Specialty [place] [address] [place] [address] [address] [place] [address] PCP - General Internal Medicine 01/19/24 Maxine Tatum MD [address] [place], [place] [phone] General Surgery 01/19/24 Asbestos Wire Finisher Relationship Specialty [place] [address] [place] [address] [address] [place] [address] PCP - General Internal Medicine 01/19/24 Maxine Tatum MD [address] [place], [place] [phone] General Surgery 01/19/24 Asbestos Wire Finisher Relationship Specialty [place] [address] [place] [address] [address] [place] [address] PCP - General Internal Medicine 01/19/24 Maxine Tatum MD [address] [place], [place] [id number] General Surgery 01/19/24 Asbestos Wire Finisher Relationship Specialty [place] [address] [place] [address] [address] [place] [address] PCP - General Internal Medicine 01/19/24 Maxine Tatum MD [address] [place], [place] [id number] General Surgery 01/19/24 Asbestos Wire Finisher Relationship Specialty Start Date End Date Pooja Mohan DO [address] [facility] [address] [place], [place] [phone] PCP - General Internal Medicine 01/19/24 Maxine Tatum MD [address] [place], [place] [phone] General Surgery 01/19/24 Cassia Bryson PA-C [address] [place], [place] [address] Dermatology 09/25/24 Team Status: Active Member Role/Relationship Status Dates Dr. Pooja Mohan DO Primary Care Provider Active Team Status: Inactive Member Role/Relationship Status Dates Dr. Pooja Mohan DO Primary Care Provider Active Start: September 26, 2024 End: September 26, 2024 Dr. Pooja Mohan DO Attending Provider Active Start: September 26, 2024 End: September 26, 2024 Dr. Pooja Mohan DO Referring Provider Active Start: September 26, 2024 End: September 26, 2024 Goals (unrecognized section and content) Goals may be documented in a n alternate section FOR RECORDS PERTAINING TO PATIENTS WHO ARE OR HAVE BEEN ENROLLED IN A CHEMICAL DEPENDENCY/SUBSTANCEABUSE PROGRAM, SOME INFORMATION MAY BE OMITTED. This clinical summary was aggregated from multiple sources. Caution should be exercised in using it in the provision of clinical care. This summary normalizes information from multiple sources, and as a consequence, information in this document may materially change the coding, format and clinical context of patient data. In addition, data may be omitted in some cases. CLINICAL DECISIONS SHOULD BE BASED ON THE PRIMARY CLINICAL RECORDS. [employer] provides no warranty or guarantee of the accuracy or completeness of information in this document.
--- NOTE | 2024-10-18 12:30 | CA.SCORE ---
Calcium Scoring Date of Study:: 10/18/24 Indications Indications: Family history of coronary disease Coronary Calcium Scoring: High-resolution Computed Tomographic imaging of the chest was performed on [10/18/2024], with particular attention paid to the coronary arteries. Images from the examination were analyzed for the presence and extent of coronary artery calcification , using coronary calcium quantification software. The patient tolerated the procedure well and there were no complications. The results of the coronary calcification analysis are provided below. Findings Coronary Artery Left Main (LM): 0 Left Anterior Descending (LAD): 0 Left Circumflex (LCX): 0 Right Coronary Artery (RCA): 0 Total Agatston Score: 0 Percentile Rankinth percentile Calcium Scoring Interpretation: Different methods to categorize the overall amount of coronary plaque. Overall amount CAC SIS Visual of coronary plaque P1 Mild -100 <2 1-2 vessels with mild amount of plaque P2 Moderate 101-300 3-4 1-2 vessels with moderate amount, 3 vessels with mild amount of plaque P3 Severe 301-999 5-7 3 vessels with moderate amount, 1 vessel with severe amount of plaque P4 Extensive >1000 >8 2-3 vessels with severe amount of plaque Conclusion: No atherosclerotic plaquing noted
== END | disposition home or self-care (01) ==
LOC: CT 06:55
PROVIDERS: PCP Internal Medicine; Referring Provider Internal Medicine; Visit Provider Internal Medicine
DX: Z82.49 Family history of ischemic heart disease and other diseases of the circulatory system (principal)
CPT/HCPCS: 75571; 76380

== ENCOUNTER → 2025-01-17 | Outpatient (CLI) | payer SELFPAY ==
--- NOTE | 2025-01-17 15:30 | EMB_PTH ---
PATIENT: PRINCE DELGADILLO LOC: [facility] U#:[id number] AGE/SX: 49/F ROOM: RE01/17/[address]: Dr. Ella Short MD : 1975 BED: DIS: 01/17/2025 SPEC #: [id number] RECD: 01/17/25 16:35 STATUS: MONIQUE REQ #: [id number] CARLENE: 01/17/25 15:[address]: Ella Short DEPT: SURGICAL PATHOLOGY RECD BY: Jerson Oneil ENTERED: 01/18/25 09:17 SP TYPE: ENDOM BX/C MIGUEL DR: Dr. Pooja Crawford DO Tissues: A - Endometrium, NOS Procedures: Surgery Specimen Level IV HEADER OPERATION: Endometrial biopsy PRE-OP DIAGNOSIS: Abnormal uterine bleeding TISSUE SUBMITTED: A- Endometrial tissue MICROSCOPIC DIAGNOSIS A. Endometrium, biopsy: * Secretory endometrium MICROSCOPIC DESCRIPTION Slides are reviewed. GROSS DESCRIPTION A. Received in formalin labeled the patient's name and date of is a 1.8 x 1.4 x 0.2 cm aggregate of santos, irregular to cylindrical tissue fragments and mucoid material. Entirely submitted in 1 cassette. [place] 01/18/2025 CPT:45335
== END | disposition home or self-care (01) ==
LOC: LABSPEC 16:04
PROVIDERS: PCP Internal Medicine; Visit Provider Obstetrics & Gynecology
DX: N93.9 Abnormal uterine and vaginal bleeding, unspecified (principal)
CPT/HCPCS: 88305